=== PATIENT | female | born 1945 ===

== ENCOUNTER 2017-06-25 21:49 | Observation (INO) | payer MEDICARE, OTHER ==
[2017-06-25 21:53] VITALS: BMI 29.2
[2017-06-25 22:29] LABS: BASO # 0.03 K/mm3 (0.0-2.0); BASO % 0.4 % (0.0-3.0); EOS # 0.2 (0.0-0.7); EOS % 2.8 % (1.5-5.0); GRAN # 4.95 (1.4-6.5); GRAN % 64.8 % (50.0-68.0); HEMATOCRIT 32.8 % (36.0-48.0); LYMPH % 25.6 % (22.0-35.0); MEAN CELL VOLUME 87.2 fl (80.0-105.0); MEAN CORPUSCULAR HEMOGLOBIN 28.7 pg (25.0-35.0); MEAN CORPUSCULAR HGB CONC 32.9 g/dl (31.0-37.0); MEAN PLATELET VOLUME 9.7 fl (7.0-11.0); MONO # 0.5 (0.1-0.6); MONO % 6.4 % (1.0-6.0); RED CELL DISTRIBUTION WIDTH 15.9 % (11.5-14.5); WHITE BLOOD COUNT 7.6 10^3/ul (4.5-11.0)
--- NOTE | 2017-06-25 22:32 | ED PDOC ---
Arrival/HPI - General Chief Complaint: Chest Pain Time Seen by Provider: 06/25/17 21:52 - History of Present Illness Narrative History of Present Illness (Text): 06/25/17 22:30 72 F with PMHx significant for stroke with 2 hour duration of constant, sharp, non-radiating, left sided cp of 7/10 severity and associated symptoms of n/v. Patient's son at bedside providing translation and history. He states that pt was complaining of a headache and chest pain a couple of hours ago, so he took the patient's bp and it was 200/110. He then called EMS, who brought the patient here. Patient was given ASA 324 in the ambulance. Pt denies sob, loss of vision, dizziness, palpitations, and diaphoresis. Patient further denies f/ch. No further complaints at this time. (Ray Bach) Past Medical History - Provider Review Nursing Documentation Reviewed: Yes - Travel History Have you recently traveled outside [place] w/in the past 3 mons?: No - Infectious Disease Hx of Infectious Diseases: None - Tetanus Immunization Tetanus Immunization: Unknown - Cardiac Hx Cardiac Disorders: Yes Hx Hypertension: Yes - Pulmonary Hx Respiratory Disorders: Yes Hx Bronchitis: Yes Hx Chronic Obstructive Pulmonary Disease (COPD): Yes - Neurological HX Cerebrovascular Accident: Yes (2004 with right leg weakness) - HEENT Hx Difficulty Chewing: No - Renal Hx Renal Disorder: No - Endocrine/Metabolic Hx Endocrine Disorders: Yes Hx Diabetes Mellitus Type 2: Yes - Hematological/Oncological Hx Blood Disorders: Yes - Integumentary Hx Dermatological Disorder: No - Musculoskeletal/Rheumatological Hx Musculoskeletal Disorders: No Hx Falls: No - Gastrointestinal Hx Gastrointestinal Disorders: Yes (Gastritis) - Genitourinary/Gynecological Hx Genitourinary Disorders: Yes - Psychiatric Hx Anxiety: Yes Hx Depression: Yes Hx Substance Use: No - Past Surgical History Past Surgical History: No Previous - Surgical History Hx Cardiac Catheterization: No Hx Coronary Stent: No - Anesthesia Hx Anesthesia: No - Suicidal Assessment Feels Threatened In Home Enviroment: No Family/Social History - Physician Review Nursing Documentation Reviewed: Yes Family/Social History: Unknown Family HX Smoking Status: Never Smoked Hx Alcohol Use: No Hx Substance Use: No Hx Substance Use Treatment: No Allergies/Home Meds Allergies/Adverse Reactions: Allergies No Known Allergies Allergy (Verified 07/31/16 15:45) Home Medications: Home Meds Medication Instructions Recorded Confirmed Metoprolol Tartrate 25 mg PO BID 09/30/12 06/25/17 Atorvastatin [Lipitor] 20 mg PO DAILY 11/05/14 06/25/17 Losartan Potassium 100 mg PO DAILY 11/05/14 06/25/17 amLODIPine [Norvasc] 10 mg PO DAILY 11/05/14 06/25/17 cloNIDine 0.1 mg/24 hr [catapres 0.1 mg TD SAT 06/18/15 06/25/17 TTS1 0.1 mg/24 hr] Dicyclomine [Bentyl] 10 mg PO TID 01/17/16 06/25/17 Meloxicam [Mobic] 7.5 mg PO PRN 01/17/16 06/25/17 Omeprazole [Prilosec] 20 mg PO DAILY 01/17/16 06/25/17 Tramadol HCl/Acetaminophen 1 tab PO PRN 01/17/16 06/25/17 [Tramadol-Acetaminophn 37.5-325] Zolpidem [Ambien] 5 mg PO HS 01/17/16 06/25/17 hydroCHLOROthiazide [Microzide] 12.5 mg PO DAILY 01/17/16 06/25/17 Glipizide [Glipizide ER] 5 mg PO DAILY 06/25/17 06/25/17 Review of Systems - Physician Review All systems were reviewed & negative as marked: Yes - Review of Systems Constitutional: Normal. absent: Fatigue, Weight Change, Fevers Eyes: Normal. absent: Vision Changes, Photophobia, Eye Pain ENT: Normal. absent: Hearing Changes, Tinnitus, TMJ Pain Respiratory: Normal. absent: SOB, Cough, Wheezing Cardiovascular: Chest Pain. absent: Palpitations, Edema, Calf Pain, ORDONEZ, Orthopnea, Syncope Gastrointestinal: Nausea, Vomiting (pt had bout of vomiting about 2 hours ago when pain started). absent: Abdominal Pain Genitourinary Female: Normal. absent: Dysuria, Frequency, Hematuria Musculoskeletal: Normal. absent: Arthralgias, Back Pain, Neck Pain Skin: Normal. absent: Rash, Pruritis, Skin Lesions Neurological: Normal. absent: Headache, Dizziness, Focal Weakness, Gait Changes Endocrine: Normal. absent: Diaphoresis, Polyuria, Polydipsia Hemo/Lymphatic: Normal. absent: Adenopathy, Easy Bleeding, Easy Bruising Psychiatric: Normal. absent: Anxiety, Depression, Suicidal Ideation Physical Exam Vital Signs Reviewed: Yes Temperature: Afebrile Blood Pressure: Hypertensive Pulse: Regular Respiratory Rate: Normal Appearance: Positive for: Well-Appearing, Non-Toxic, Comfortable Pain Distress: None Mental Status: Positive for: Alert and Oriented X 3 - Systems Exam Head: Present: Atraumatic, Normocephalic. No: Tenderness, Contusion Pupils: Present: PERRL. No: Sluggish, Non-Reactive, Pinpoint Extroacular Muscles: Present: EOMI. No: Gaze Palsy, Entrapment Conjunctiva: Present: Normal. No: Injected, Icteric Ears: Present: Normal, NORMAL TM, Normal Canal. No: Erythema, TM Bulging Mouth: Present: Moist Mucous Membranes. No: Dry, Drooling, Trismus Pharnyx: Present: Normal. No: ERYTHEMA, EXUDATE, TONSILS ENLARGED Nose (External): Present: Atraumatic. No: Abrasion, Contusion, Laceration Nose (Internal): Present: Normal Inspection, No Active Bleeding. No: Engorged, Edematous, Boggy Neck: Present: Normal Range of Motion. No: Meningeal Signs, MIDLINE TENDERNESS , Paraspinal Tenderness Respiratory/Chest: Present: Clear to Auscultation, Good Air Exchange. No: Respiratory Distress, Accessory Muscle Use Cardiovascular: Present: Regular Rate and Rhythm, Normal S1, S2, Peripheal Pulses Present. No: Murmurs, Irregular Rhythm, Tachycardic, Rub, Gallop Abdomen: Present: Normal Bowel Sounds. No: Tenderness, Distention, Peritoneal Signs, Rebound, Guarding Back: Present: Normal Inspection. No: CVA Tenderness, Midline Tenderness Upper Extremity: Present: Normal Inspection, Normal ROM, NORMAL PULSES. No: Cyanosis, Edema, Tenderness, Swelling Lower Extremity: Present: Normal Inspection, NORMAL PULSES, Normal ROM. No: Edema, CALF TENDERNESS, Cyanosis Neurological: Present: GCS=15, CN II-XII Intact, Speech Normal, Motor Func Grossly Intact, Normal Sensory Function, Normal Cerebellar Funct, Norm Deep Tendon Reflexes Skin: Present: Warm, Dry, Normal Color. No: Rashes, Diaphoretic Psychiatric: Present: Alert, Oriented x 3, Normal Insight, Normal Concentration , Normal Affect. No: Anxious, Agitated, Depressed Mood, Suicidal Ideation, Homicidal Ideation Vital Signs Temp Pulse Resp BP Pulse Ox 06/25/17 22:35 98.2 F 06/25/17 22:08 83 16 164/89 H 98 Medical Decision Making ED Course and Treatment: Patient Seen With Resident: In agreement with resident note which contains more details about the patient. Patient was seen and evaluated with resident. Came up with plan and treatment together. (Tawanda Nguyen) Assessed: 06/25/17 22:43 Impression: 72 F with PMHx pertinent for stroke presents with 2 hour duration of CP Plan: - Cardiac Iso's, EKG, CXR - CMP, CBC - UA, U Cx - Blood Cx - O2 Reassessed: 06/25/17 23:00 - CMP, CBC show no abnormalities - CXR negative - Tropes negative Reassessed 06/25/17 23:32 - Pt has extensive cardiac/stroke history - Spoke to Dr. Velarde, who is covering for Dr. Sterling, who agreed to admit the patient to his service on obs/tele (Ray Bach) - Lab Interpretations Lab Results: 06/25/17 22:24 06/25/17 22:24 Lab Results 06/25/17 22:24: Sodium 135, Potassium 4.1, Chloride 94 L, Carbon Dioxide 27, Anion Gap 18, BUN 16, Creatinine 0.9, Est GFR ( Amer) > 60, Est GFR (Non- Af Amer) > 60, Random Glucose 165 H, Calcium 9.7, Total Bilirubin 0.6, AST 43 H , ALT 29, Alkaline Phosphatase 151 H, Lactate Dehydrogenase 439, Total Creatine Kinase 55, Troponin I < 0.01, Total Protein 8.2, Albumin 4.9 H, Globulin 3.2, Albumin/Globulin Ratio 1.5 06/25/17 22:24: WBC 7.6 D, RBC 3.76, Hgb 10.8 L, Hct 32.8 L, MCV 87.2, MCH 28.7 , MCHC 32.9, RDW 15.9 H, Plt Count 208, MPV 9.7, Gran % 64.8, Lymph % (Auto) 25.6, [place] % (Auto) 6.4 H, Eos % (Auto) 2.8, Baso % (Auto) 0.4, Gran # 4.95, Lymph # 2.0, [place] # 0.5, Eos # 0.2, Baso # 0.03 06/25/17 21:50: Urine Color Yellow, Urine Appearance Clear, Urine pH 7.0, Ur Specific [place] 1.010, Urine Protein Negative, Urine Glucose (UA) Negative, Urine Ketones Negative, Urine Blood Trace-lysed H, Urine Nitrate Negative, Urine Bilirubin Negative, Urine Urobilinogen 0.2, Ur Leukocyte Esterase Negative , Urine RBC 0 - 2, Urine WBC Negative, Ur Epithelial Cells None, Urine Bacteria Trace - RAD Interpretation Radiology Orders: 06/25/17 22:20 CHEST PORTABLE [RAD] Stat Disposition/Present on Arrival - Present on Arrival Any Indicators Present on Arrival: No History of DVT/PE: No History of Uncontrolled Diabetes: No Urinary Catheter: No History of Decub. Ulcer: No History Surgical Site Infection Following: None - Disposition Have Diagnosis and Disposition been Completed?: Yes Disposition Time: 23:20 Patient Plan: Admission - Disposition Diagnosis: Chest pain Disposition: HOSPITALIZED Condition: GOOD Discharge Instructions (ExitCare): Chest Pain (ED) Referrals: Roc Potts, [Primary Care Provider] - Follow up with primary Forms: [employer] ([place])
[2017-06-25 22:40] LABS: ALB/GLOB RATIO 1.5 (1.1-1.8); ALKALINE PHOSPHATASE 151 U/L (38-126); ALT/SGPT 29 U/L (7-56); AST/SGOT 43 U/L (14-36); BILIRUBIN,TOTAL 0.6 mg/dL (0.2-1.3); BLOOD UREA NITROGEN 16 mg/dL (7-21); CALCIUM 9.7 mg/dL (8.4-10.5); CARBON DIOXIDE 27 mmol/L (21-33); CHLORIDE 94 mmol/L (98-107); GFR AFRICAN-AMERICAN > 60; GLUCOSE,RANDOM 165 mg/dL (70-110); POTASSIUM 4.1 mmol/L (3.6-5.0); SODIUM 135 mmol/L (132-148); TOTAL PROTEIN 8.2 g/dL (5.8-8.3)
[2017-06-25 22:51] LABS: URINE BILIRUBIN NEGATIVE (NEGATIVE); URINE BLOOD TRACE-LYSED (NEGATIVE); URINE GLUCOSE (UA) NEGATIVE (NEGATIVE); URINE KETONE NEGATIVE (NEGATIVE); URINE LEUKOCYTE ESTERASE NEGATIVE Leu/uL (NEGATIVE); URINE PROTEIN NEGATIVE mg/dL (<30 mg/dL); URINE UROBILINOGEN 0.2 E.U./dL (<1 E.U./dL)
[2017-06-25 22:52] LABS: TROPONIN I < 0.01 ng/mL
[2017-06-25 22:57] LABS: URINE APPEARANCE CLEAR (CLEAR); URINE COLOR YELLOW (YELLOW)
[2017-06-25 23:11] LABS: URINE BACTERIA TRACE (NEG); URINE RBC 0 - 2 /hpf (0-2); URINE WBC NEGATIVE /hpf (0-6)
[2017-06-26 06:45] VITALS: O2SAT 97
[2017-06-26 08:13] LABS: TROPONIN I < 0.01 ng/mL
[2017-06-26] MEDS ORDERED: GlipiZIDE 2.5 mg SR Tab PO SCH (10:00)
--- NOTE | 2017-06-26 11:31 | RAD ---
HISTORY: chest pain COMPARISON: Comparison chest 01/06/2017 FINDINGS: LUNGS: No active pulmonary disease. PLEURA: No significant pleural effusion identified, no pneumothorax apparent. CARDIOVASCULAR: Normal. OSSEOUS STRUCTURES: No significant abnormalities. VISUALIZED UPPER ABDOMEN: Normal. OTHER FINDINGS: None. IMPRESSION: No acute infiltrates.
--- NOTE | 2017-06-26 13:35 | CON ---
DATE: 06/26/2017 CONSULTATION INDICATION: Chest pain. HISTORY OF PRESENT ILLNESS: This is a 72-year-old woman known to me from prior [facility] admissions, admitted through the emergency room yesterday with a sharp chest discomfort, which was left-sided and lasted for several hours. It was associated with headache and elevated blood pressure. She was brought to the emergency room and subsequently has had resolution of symptoms. This morning, she is free of chest pain. The first troponin was negative. The EKG was benign. Her blood pressure is improved. There was no shortness of breath, orthopnea, PND, syncope, presyncope, lightheadedness, dizziness, vertigo, palpitation, edema, claudication, fever, chills, cough, sputum production, hemoptysis, abdominal pain, nausea, vomiting, diarrhea, constipation, or melena. The patient is Icelandic speaking. Information is from the chart and from her bedside nurse, who assisted with translation. I also spoke with Dr. Wolfe. PAST MEDICAL HISTORY: Notable for hypertension, diabetes, remote stroke, cerebrovascular disease, COPD, hyperlipidemia, anxiety, depression, gastritis, anemia, and an echocardiogram has demonstrated a moderate aortic insufficiency. Apparently, she sees a government affairs director in [place]. She reports a nuclear stress test a few years ago, which was apparently unremarkable. MEDICATIONS AT THE TIME OF ADMISSION: Included Ambien, aspirin, Bentyl, glipizide, Lipitor, losartan, metoprolol, hydrochlorothiazide, meloxicam, Motrin, Norvasc, Pepcid, omeprazole, tramadol, and clonidine patch. ALLERGIES: THERE ARE NO KNOWN MEDICATION ALLERGIES. SOCIAL HISTORY: She lives at home. She does not smoke cigarettes. She does not drink alcohol. FAMILY HISTORY: Noncontributory. REVIEW OF SYSTEMS: A 10-point review of systems is otherwise unremarkable except as noted above. PHYSICAL EXAMINATION: GENERAL: She is a well-developed woman, lying in bed on telemetry, in no acute distress. VITAL SIGNS: She is in sinus rhythm, 60 to 83 beats per minute. She is afebrile, blood pressure 134/69, respirations 16 to 18, and O2 sat 97% to 98% on room air. HEENT: Exam reveals no neck vein distention, thyromegaly, or carotid bruits. Mucous membranes moist. Conjunctivae pink. NECK: Supple. RESPIRATORY: Lung xiao clear throughout. CARDIOVASCULAR: Examination of the heart revealed normal first and second heart sounds. There was a soft systolic murmur and a soft diastolic murmur along the left sternal border. ABDOMEN: Soft. Bowel sounds are present. No mass, organomegaly, tenderness, rebound, guarding, palpable abdominal aortic aneurysm, or CVA tenderness. EXTREMITIES: Exam reveals no cyanosis, clubbing, or edema. NEUROLOGIC: Awake, alert, and oriented. PSYCHIATRIC: Normal as to mood and affect. SKIN: Warm and dry. No rash or cellulitis. LABORATORY AND IMAGING: EKG demonstrates regular sinus rhythm, no acute changes. Chest x-ray is a portable study. It is not interpreted yet. I see no evidence of congestive heart failure, effusion or infiltrate. Basically, it is a normal study by my interpretation. Hemoglobin 10.8, hematocrit 32.8, white blood cell count and platelet count normal. Electrolytes; BUN, creatinine unremarkable, BUN 16, creatinine 0.9, and blood sugar 165. Calcium normal. Bilirubin normal. Mild elevation of AST noted. ALT normal. Alkaline phosphatase mildly elevated. CK negative x2. Troponin negative x2. IMPRESSION: The patient is a 72-year-old woman admitted with chest pain, but no evidence of acute myocardial infarction by 2 sets of negative troponins. There has been no arrhythmia. She is on telemetry without chest pain this morning. PLAN: I have discussed the case with Dr. Wolfe. I would recommend a nuclear stress test. This can be done on an outpatient basis, perhaps by her own government affairs director in [place]. I would repeat her echocardiogram to assess the moderate aortic insufficiency seen on a prior echocardiogram. This can also be done on an outpatient basis. I would continue her current cardiac medications including aspirin, losartan, Lipitor, metoprolol, hydrochlorothiazide, and amlodipine. She can be out of bed and ambulate. Silvio Durant MD [facility] # [id number]
[2017-06-26] MEDS: Insulin Reg-LOW-Coverage SC SCH ×2 (14:07→16:56)
[2017-06-26 18:01] VITALS: BP 135/69
[2017-06-26 18:13] VITALS: RESP 17; TEMP 97.9
[2017-06-26 19:41] VITALS: PULSE 62
--- NOTE | 2017-06-26 22:52 | CARD ---
APPROVED REPORT EKG Measurement Heart [id number] [place] [id number] <Conclusion> Sinus bradycardia Otherwise normal ECG
--- NOTE | 2017-06-26 22:57 | CARD ---
APPROVED REPORT EKG Measurement Heart [id number] [place] [id number] <Conclusion> Normal sinus rhythm Septal infarct, age undetermined Abnormal ECG
--- NOTE | 2017-06-27 07:32 | HP ---
HISTORY OF PRESENT ILLNESS: This is a 72-year-old female who is coming into the hospital, who had started complaining of chest pain, she says 04/16. There was some nausea. The patient was also complaining of headache. She said, she was having left sided shoulder pain. This morning while I saw the patient, she did not have any of the symptoms. When she initially came into the emergency room, her blood pressure was significantly elevated with a systolic about 200. She says her Lathe Mechanic is in [place] and she had a stress test done 4 years ago. She is currently is comfortable. She has no complaints of any fever or chills. No nausea. No vomiting. No dysuria or frequency. No nocturia. No weakness in the arms or the legs. REVIEW OF SYSTEMS: All other review of symptoms are within normal limits except as mentioned. ALLERGIES: NO KNOWN DRUG ALLERGIES. HOME MEDICATIONS: Metoprolol, Lipitor, losartan, amlodipine, Catapres, Bentyl, Mobic, and Prilosec. PAST MEDICAL HISTORY: , hypertension, COPD, CVA in 2004 with right-sided leg weakness, diabetes type 2, chronic anemia, anxiety, and depression. FAMILY HISTORY: Noncontributory. SOCIAL HISTORY: chain smoker, use drugs. PHYSICAL EXAMINATION: VITAL SIGNS: She has a temperature of 98.5, pulse of 61, blood pressure of 132/67, respirations 18, height is 5 feet, weight is 147 pounds. BMI is 28.9. GENERAL: The patient lying in bed, uncomfortable, and in no acute distress. HEENT: Atraumatic and normocephalic. Anicteric sclerae. Moist mucosa. [place] conjunctivae. No oral lesions. NECK: No JVD, anterior and posterior adenopathy, thyromegaly, or bruits. CARDIOVASCULAR: S1 and S2 regular. No murmur, rubs, or gallop. LUNGS: Clear to auscultation bilaterally. No wheezes, rales, or rhonchi. ABDOMEN: Bowel sounds are positive. Soft, nontender and nondistended. No hepatosplenomegaly. No rebound and no guarding EXTREMITIES: No cyanosis, clubbing, or edema. NEUROLOGIC: No facial asymmetry. Tongue is midline. No uvula deviation. Power is 5/5 upper extremity and lower extremity. Sensation intact in upper extremity and lower extremity. PSYCHIATRIC: She is awake, alert and oriented x3. No anxiety or depression. She has normal affect. GENITOURINARY: No CVA tenderness. VASCULAR: 2+ pulses in the carotid pulses and pedal pulses. SKIN: No erythema or nodules. SPINE: Shows normal curvature. EXTREMITIES: No Cyanosis and clubbing, no edema. LABORATORY DATA: I have reviewed. The patient's troponin is 0.01, repeat is 0.01. Creatinine is 0.9. Urine shows blood that is trace, nitrites are negative, bilirubin is negative. Chest x-ray done that shows no infiltrates. EKG shows regular sinus rhythm. No ST-T changes. ASSESSMENT: 1. Chest pain, resolved. 2. Diabetes type 2. 3. Hypertension. 4. Dyslipidemia. PLAN: The patient is currently comfortable. She is admitted to the hospital with chest pain. Her troponins have been negative. The patient has no significant abnormality on EKG. She was seen by Dr. Page from cardiology and I did speak with him. The patient is going to be discharge home and followup with her primary Lathe Mechanic in [place]. She was advised translation to follow up for further management and possible stress test. The patient is on Lipitor for dyslipidemia. She is on metoprolol. She is on losartan for hypertension. She is going to continue with aspirin daily. She is on a heart-healthy diet. Juan Carlos Velarde MD
--- NOTE | 2017-06-27 09:43 | CARD ---
APPROVED REPORT EXAM: Two-dimensional and M-mode echocardiogram with Doppler and color Doppler. INDICATION Chest Pain AORTIC REGURGITATION 2D DIMENSIONS Left Atrium (2D)3.7 (1.6-4.0cm)IVSd1.2 (0.7-1.1cm) LVDd4.7 (3.9-5.9cm)PWd1.2 (0.7-1.1cm) LVDs3.2 (2.5-4.0cm)FS (%) 31.0 % LVEF (%)58.6 (>50%) M-Mode DIMENSIONS Aortic Root2.60 (2.2-3.7cm)Aortic Cusp Exc.1.40 (1.5-2.0cm) Aortic Valve AoV Peak Avfzyuvs817.0cm/Inga Peak GR.16mmHg Mitral Valve MV E Bvhmsgqb479.0cm/sMV A Ezukolca59.0cm/sE/A ratio1.4 TDI E/Lateral E'0.0E/Medial E'0.0 Tricuspid Valve TR Peak Ghbteioo021ra/sRAP [id number] Peak Gr.30mmHg [id number] LEFT VENTRICLE The left ventricle is normal size. There is mild concentric left ventricular hypertrophy. The left ventricular function is normal. The left ventricular ejection fraction is within the normal range. There is normal LV segmental wall motion. RIGHT VENTRICLE The right ventricle is normal size. The right ventricular systolic function is normal. ATRIA The left atrium size is normal. The right atrium size is normal. The interatrial septum is intact with no evidence for an atrial septal defect. AORTIC VALVE The aortic valve is mildly sclerotic. There is moderate aortic regurgitation. There is no aortic valvular stenosis. MITRAL VALVE The mitral valve is mildly thickened. Mitral regurgitation is mild. TRICUSPID VALVE The tricuspid valve is normal in structure. There is moderate tricuspid regurgitation. PULMONIC VALVE The pulmonary valve is normal in structure. GREAT VESSELS The aortic root is normal in size. The IVC is normal in size and collapses >50% with inspiration. PERICARDIAL EFFUSION There is no pleural effusion. There is no pericardial effusion. <Conclusion> Normal chamber size. Normal LV systolic function. Mild concentric LVH. Mild MR. Moderate TR. Moderate AI.
== END 2017-06-26 19:00 | disposition home or self-care (01) ==
LOC: ED 21:49 → ERH 23:32 → 2RNO 06-26 02:45
PROVIDERS: ADMIT Internal Medicine Nephrology; ATTEND Internal Medicine Nephrology
DX: R07.9 Chest pain, unspecified (principal); E11.9 Type 2 diabetes mellitus without complications; E78.5 Hyperlipidemia, unspecified; F17.200 Nicotine dependence, unspecified, uncomplicated; I10 Essential (primary) hypertension; I35.1 Nonrheumatic aortic (valve) insufficiency; I69.349 Monoplegia of lower limb following cerebral infarction affecting unspecified side; D64.9 Anemia, unspecified; J44.9 Chronic obstructive pulmonary disease, unspecified; Z79.899 Other long term (current) drug therapy; K29.70 Gastritis, unspecified, without bleeding; F32.89 Other specified depressive episodes; R40.2412 Glasgow coma scale score 13-15, at arrival to emergency department; R51 Headache; M25.512 Pain in left shoulder
CPT/HCPCS: 36415; 71010; 80053; 81001; 82550; 82948; 83615; 84484; 85025; 87040; 87086; 93005; 93306; 99285; G0378

== ENCOUNTER 2017-07-11 14:46 | Inpatient (IN) | payer MEDICARE, OTHER ==
[2017-07-11] MEDS ORDERED: Sodium Chloride 0.9% 500 ML IV STA (15:40)
[2017-07-11 16:09] LABS: BASO # 0.02 K/mm3 (0.0-2.0); BASO % 0.2 % (0.0-3.0); EOS # 0.1 (0.0-0.7); GRAN # 8.64 (1.4-6.5); GRAN % 76.2 % (50.0-68.0); HEMATOCRIT 27.4 % (36.0-48.0); LYMPH # 1.7 (1.2-3.4); LYMPH % 14.6 % (22.0-35.0); MEAN CORPUSCULAR HEMOGLOBIN 28.9 pg (25.0-35.0); MEAN CORPUSCULAR HGB CONC 33.2 g/dl (31.0-37.0); MEAN PLATELET VOLUME 9.1 fl (7.0-11.0); MONO # 0.9 (0.1-0.6); RED CELL DISTRIBUTION WIDTH 16.2 % (11.5-14.5); WHITE BLOOD COUNT 11.3 10^3/ul (4.5-11.0)
[2017-07-11 16:14] LABS: INR 1.01 (0.93-1.08); PARTIAL THROMBOPLASTIN TIME 32.4 Seconds (23.7-30.8)
[2017-07-11 16:14] LABS: ALB/GLOB RATIO 1.4 (1.1-1.8); BILIRUBIN,TOTAL 0.7 mg/dL (0.2-1.3); CALCIUM 8.5 mg/dL (8.4-10.5); POTASSIUM 4.1 mmol/L (3.6-5.0); TOTAL PROTEIN 7.3 g/dL (5.8-8.3)
--- NOTE | 2017-07-11 16:24 | ED PDOC ---
Arrival/HPI - General Chief Complaint: Female Genitourinary Time Seen by Provider: 07/11/17 15:04 Historian: Patient, Family - History of Present Illness Narrative History of Present Illness (Text): 07/11/17 16:22 72 yo F w/ pmh of DM, HTN, anemia and high cholesterol, reports 2 days of tactile fever, chills, nausea, cough productive of phlegm, with intermittent LUQ pain. Patient went to see her pmd, a UA was done, which showed +blood, and was advised to go to the ER for further evaluation. Otherwise: (-) sore throat, (-) URI symptoms, (-) SOB, (-) chest pain, (-) V/D, (-) flank pain, (-) urinary symptoms, (-) recent travel, (-) sick contacts. PMD Condo Past Medical History - Provider Review Nursing Documentation Reviewed: Yes - Infectious Disease Hx of Infectious Diseases: None - Tetanus Immunization Tetanus Immunization: Unknown - Cardiac Hx Cardiac Disorders: Yes Hx Hypertension: Yes - Pulmonary Hx Respiratory Disorders: Yes Hx Chronic Obstructive Pulmonary Disease (COPD): Yes - Neurological Hx Neurological Disorder: Yes HX Cerebrovascular Accident: Yes - HEENT Hx HEENT Disorder: Yes Hx Cataracts: Yes - Renal Hx Renal Disorder: No - Endocrine/Metabolic Hx Endocrine Disorders: Yes Hx Diabetes Mellitus Type 2: Yes - Hematological/Oncological Hx Blood Disorders: No - Integumentary Hx Dermatological Disorder: No - Musculoskeletal/Rheumatological Hx Musculoskeletal Disorders: No Hx Falls: No - Gastrointestinal Hx Gastrointestinal Disorders: Yes Hx Gastroesophageal Reflux: Yes - Genitourinary/Gynecological Hx Genitourinary Disorders: Yes Hx Urinary Tract Infection: Yes - Psychiatric Hx Psychophysiologic Disorder: No Hx Substance Use: No - Past Surgical History Past Surgical History: No Previous - Surgical History Hx Cardiac Catheterization: No Hx Coronary Stent: No - Anesthesia Hx Anesthesia: No - Suicidal Assessment Feels Threatened In Home Enviroment: No Family/Social History - Physician Review Nursing Documentation Reviewed: Yes Family/Social History: No Known Family HX Smoking Status: Never Smoked Hx Alcohol Use: No Hx Substance Use: No Hx Substance Use Treatment: No Allergies/Home Meds Allergies/Adverse Reactions: Allergies No Known Allergies Allergy (Verified 07/11/17 19:53) Home Medications: Home Meds Medication Instructions Recorded Confirmed Atorvastatin [Lipitor] 20 mg PO DAILY 11/05/14 07/11/17 amLODIPine [Norvasc] 10 mg PO DAILY 11/05/14 07/11/17 Dicyclomine [Bentyl] 10 mg PO TID 01/17/16 07/11/17 Omeprazole [Prilosec] 20 mg PO DAILY 01/17/16 07/11/17 hydroCHLOROthiazide [Microzide] 12.5 mg PO DAILY 01/17/16 07/11/17 Glipizide [Glipizide ER] 5 mg PO DAILY 06/25/17 07/11/17 Amitriptyline HCl [Amitriptyline 25 mg PO DAILY 07/11/17 07/11/17 HCl] Dicyclomine [Bentyl] 10 mg PO DAILY 07/11/17 07/11/17 Donepezil [Aricept] 10 mg PO DAILY 07/11/17 07/11/17 Fluticasone/Salmeterol 100/50 1 puff IH DAILY 07/11/17 07/11/17 [Advair Diskus 100/50] Losartan Potassium [Cozaar] 100 mg PO DAILY 07/11/17 07/11/17 Metoprolol Tartrate [Lopressor] 25 mg PO DAILY 07/11/17 07/11/17 cloNIDine [Catapres] 0.1 mg PO DAILY 07/11/17 07/11/17 Review of Systems - Review of Systems Constitutional: Normal, Fevers, Other (chills). absent: Fatigue, Weight Change ENT: Normal. absent: Sore Throat, Rhinorrhea, Sinus Congestion Respiratory: Normal, Cough. absent: SOB, Wheezing Cardiovascular: Normal. absent: Chest Pain, Palpitations, Edema Gastrointestinal: Normal, Abdominal Pain, Nausea. absent: Diarrhea, Vomiting Genitourinary Female: Normal, Hematuria. absent: Dysuria, Frequency Musculoskeletal: Normal. absent: Arthralgias, Back Pain, Neck Pain Skin: Normal. absent: Rash, Pruritis, Skin Lesions Neurological: Normal. absent: Headache, Dizziness, Focal Weakness Physical Exam - Physical Exam Narrative Physical Exam (Text): 07/11/17 16:25 GENERAL APPEARANCE: Patient is awake, alert, oriented x 3, in no acute distress. SKIN: Warm, dry; (-) cyanosis, (-) rash. (-) Decubitus Ulcer EYES: (-) conjunctival pallor, (-) scleral icterus, (-) conjunctival hemorrhage. ENMT: Mucous membranes dry. Airway patent: (-) stridor. Pharynx: (-) erythema, (-) exudate. NECK: (-) tenderness, (-) stiffness, (-) meningismus, (-) lymphadenopathy. CHEST AND RESPIRATORY: (-) accessory muscle use. Lungs: (-) rales, (-) rhonchi, (-) wheezes, (-) rub; breath sounds equal bilaterally. HEART AND CARDIOVASCULAR: (-) irregularity; (-) murmur, (-) gallop, (-) rub. ABDOMEN AND GI: Soft; (-) tenderness, (-) guarding; (-) organomegaly; (-) mass ; (-) CVA tenderness. RECTAL : (-) tenderness, (-) mass, (-) stool impaction. Stool brown in color, guiac (+). 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 EXTREMITIES: (-) deformity; (-) cellulitis, (-) lymphangitis; (-) subungual hemorrhage; (-) edema. NEURO AND PSYCH: Mental status as above; (-) focal findings. Vital Signs Temp Pulse Resp BP Pulse Ox 07/11/17 18:45 98.7 F 87 17 122/78 99 07/11/17 17:38 99.3 F 82 17 129/49 L 100 07/11/17 15:48 99 F 07/11/17 14:57 98.8 F 81 17 104/69 99 Medical Decision Making ED Course and Treatment: 07/11/17 16:25 72 yo F w/ pmh of DM, HTN and high cholesterol, reports 2 days of tactile fever , chills, nausea, cough productive of phlegm, with intermittent LUQ pain. DDx : UTI, PNA, cholecystitis Plan: -- Labs -- IV fluids -- Urinalysis -- Rectal temp -- CXR -- Reassess and disposition -- US ABD Rectal T 99. CXR : NAD, as read by YG BORGES abd : no acute findings. Labs reviewed, patient noted to have a mild elevated WBC with a L shift, Hgb is 9.1, prior labs reveal that the patient is normally around 11-10. On further questioning, the patient states that she had a normal endoscopy and colonoscopy 2-3 years ago, does not recall the GI doctor, who did the procedure. Patient still afebrile at this time, is not tachycardic, resting in bed comfortably in no acute distress, is requesting for tylenol for her b/l knee pain due to arthritis. Breathing easy and unlabored, lungs CTA, abdomen remains soft and non -tender. Given tylenol po. Based on history, exam and diagnostic results plan will be for inpatient admission for UTI, anemia and GI bleed. Patient and family made aware of diagnosis and plan for admission. Patient states she fully agrees with and understands further plan of care. I have given the patient opportunity to ask any additional questions. Case d/w Dr. Velarde, agrees with plan to admit the patient, bridge orders placed, consult to GI ordered. - Lab Interpretations Lab Results: 07/11/17 13:50 07/11/17 15:50 Lab Results 07/11/17 16:55: Urine Color Yellow, Urine Appearance Sl cloudy, Urine pH 7.0, Ur Specific [place] 1.010, Urine Protein Negative, Urine Glucose (UA) Negative, Urine Ketones Negative, Urine Blood Small H, Urine Nitrate Negative, Urine Bilirubin Negative, Urine Urobilinogen 0.2, Ur Leukocyte Esterase Small H, Urine RBC 0 - 2, Urine WBC 5 - 10 07/11/17 15:50: Sodium 130 L, Potassium 4.1, Chloride 92 L, Carbon Dioxide 27, Anion Gap 15, BUN 14, Creatinine 1.1, Est GFR ( Amer) 59, Est GFR (Non- Af Amer) 49, Random Glucose 117 H, Calcium 8.5, Total Bilirubin 0.7, AST 45 H, ALT 41, Alkaline Phosphatase 125, Total Protein 7.3, Albumin 4.3, Globulin 3.0, Albumin/Globulin Ratio 1.4, Lipase 121 07/11/17 13:50: PT 10.9, INR 1.01, APTT 32.4 H 07/11/17 13:50: WBC 11.3 H D, RBC 3.15 L, Hgb 9.1 L, Hct 27.4 L, MCV 87.0, MCH 28.9, MCHC 33.2, RDW 16.2 H, Plt Count 198, MPV 9.1, Gran % 76.2 H, Lymph % ( Auto) 14.6 L, [place] % (Auto) 8.0 H, Eos % (Auto) 1.0 L, Baso % (Auto) 0.2, Gran # 8.64 H, Lymph # 1.7, [place] # 0.9 H, Eos # 0.1, Baso # 0.02 I have reviewed the lab results: Yes - RAD Interpretation Narrative RAD Interpretations (Text): 07/11/17 18:46 US ABD : FINDINGS: LIVER: Measures 17.6 cm. Normal echogenicity of the liver parenchyma. No mass. No intrahepatic bile duct dilatation. GALLBLADDER: There are no gallstones, wall thickening or pericholecystic fluid. The sonographic Gomez's sign is negative. COMMON BILE DUCT: Measures 5.1 mm. No stones. No dilatation. PANCREAS: Unremarkable as visualized. No mass. No ductal dilatation. RIGHT KIDNEY: Measures 10.4cm. Normal echogenicity. No calculus, mass, or hydronephrosis. LEFT KIDNEY: Measures 10.2cm. Normal echogenicity. No calculus, mass, or hydronephrosis. SPLEEN: Normal in size and contour. No mass. AORTA: No aneurysmal dilatation. IVC: Unremarkable. OTHER FINDINGS: None. IMPRESSION: Normal examination. Radiology Orders: 07/11/17 15:40 ABDOMEN COMPLETE [US] Stat 07/11/17 15:43 CHEST TWO VIEWS (PA/LAT) [RAD] Stat - Medication Orders Current Medication Orders: Amitriptyline HCl (Elavil) 25 mg PO DAILY [facility] Amlodipine Besylate (Norvasc) 10 mg PO DAILY [facility] Arformoterol Tartrate (Brovana) 15 mcg IH DAILY@0800 [facility] Aspirin (Aspirin Chewable) 81 mg PO DAILY [facility] Atorvastatin Calcium (Lipitor) 20 mg PO DAILY [facility] Budesonide (Pulmicort Respules) 0.25 mg IH DAILY@0800 [facility] Donepezil HCl (Aricept) 10 mg PO DAILY [facility] Glipizide (Glucotrol) 5 mg PO ACB [facility] Hydrochlorothiazide (Microzide) 12.5 mg PO DAILY [facility] Insulin Human Regular (Humulin R Med) 0 units SC ACHS [facility] PRN Reason: Protocol Last Admin: 07/12/17 00:41 Dose: Not Given Non-Admin Reason: Blood Sugar Parameter MAR Blood Glucose Document 07/12/17 00:41 NW (Rec: 07/12/17 00:48 NW [id number]) Blood Glucose Finger Stick Blood Glucose (70-120) 152 Losartan Potassium (Cozaar) 100 mg PO DAILY [facility] Metoprolol Tartrate (Lopressor) 25 mg PO DAILY [facility] Discontinued Medications Sodium Chloride (Sodium Chloride 0.9%) 500 mls @ 500 mls/hr IV .Q1H STA Stop: 07/11/17 16:39 Last Admin: 07/11/17 16:00 Dose: 500 mls/hr eMAR Start Stop Document 07/11/17 16:00 OCS (Rec: 07/11/17 16:00 [place] [email or web address] Intravenous Solution Start Date 07/11/17 Start Time 16:00 Ceftriaxone Sodium (Rocephin 1 Gram Ivpb) 1 gm in 100 mls @ 200 mls/hr IVPB STAT STA PRN Reason: Protocol Stop: 07/11/17 18:14 Last Admin: 07/11/17 18:09 Dose: 200 mls/hr eMAR Start Stop Document 07/11/17 18:09 OCS (Rec: 07/11/17 18:09 O[place] [email or web address] Intravenous Solution Start Date 07/11/17 Start Time 18:09 Ondansetron HCl (Zofran Inj) 4 mg IVP STAT STA Stop: 07/11/17 15:41 Last Admin: 07/11/17 16:00 Dose: 4 mg IVP Administration Document 07/11/17 16:00 OCS (Rec: 07/11/17 16:00 [facility] [email or web address] Charges for Administration # of IVP Administrations 1 Pantoprazole Sodium (Protonix Inj) 40 mg IVP STAT STA Stop: 07/11/17 15:41 Last Admin: 07/11/17 16:00 Dose: 40 mg IVP Administration Document 07/11/17 16:00 OCS (Rec: 07/11/17 16:01 OCS [email or web address] Charges for Administration # of IVP Administrations 1 Pneumococcal Polyvalent Vaccine (Pneumovax 23 Vaccine) 0.5 ml IM .ONCE ONE Stop: 07/11/17 21:48 - 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 Disposition/Present on Arrival - Present on Arrival Any Indicators Present on Arrival: No History of DVT/PE: No History of Uncontrolled Diabetes: No Urinary Catheter: No History of Decub. Ulcer: No History Surgical Site Infection Following: None - Disposition Have Diagnosis and Disposition been Completed?: Yes Diagnosis: UTI (urinary tract infection), Anemia, GI bleed Disposition: HOSPITALIZED Disposition Time: 18:30 Patient Plan: Admission Patient Problems: Current Active Problems Problem Status Onset Anemia Acute GI bleed Acute UTI (urinary tract infection) Acute Condition: STABLE
--- NOTE | 2017-07-11 17:08 | US ---
HISTORY: LUQ pain, hematuria COMPARISON: None. TECHNIQUE: Grayscale imaging was performed. FINDINGS: LIVER: Measures 17.6 cm. Normal echogenicity of the liver parenchyma. No mass. No intrahepatic bile duct dilatation. GALLBLADDER: There are no gallstones, wall thickening or pericholecystic fluid. The sonographic Gomez's sign is negative. COMMON BILE DUCT: Measures 5.1 mm. No stones. No dilatation. PANCREAS: Unremarkable as visualized. No mass. No ductal dilatation. RIGHT KIDNEY: Measures 10.4cm. Normal echogenicity. No calculus, mass, or hydronephrosis. LEFT KIDNEY: Measures 10.2cm. Normal echogenicity. No calculus, mass, or hydronephrosis. SPLEEN: Normal in size and contour. No mass. AORTA: No aneurysmal dilatation. IVC: Unremarkable. OTHER FINDINGS: None. IMPRESSION: Normal examination.
--- NOTE | 2017-07-11 17:11 | RAD ---
HISTORY: cough COMPARISON: 06/25/2017. TECHNIQUE: Chest PA and lateral FINDINGS: LUNGS: The lungs are well inflated and clear. PLEURA: No significant pleural effusion identified. No pneumothorax apparent. CARDIOVASCULAR: Normal. OSSEOUS STRUCTURES: Within normal limits for the patient's age. There is bilateral calcific tendinitis. VISUALIZED UPPER ABDOMEN: Normal. OTHER FINDINGS: None. IMPRESSION: No active pulmonary disease.
[2017-07-11 17:15] LABS: URINE BILIRUBIN NEGATIVE (NEGATIVE); URINE BLOOD SMALL (NEGATIVE); URINE GLUCOSE (UA) NEGATIVE (NEGATIVE); URINE KETONE NEGATIVE (NEGATIVE); URINE LEUKOCYTE ESTERASE SMALL Leu/uL (NEGATIVE); URINE PROTEIN NEGATIVE mg/dL (<30 mg/dL); URINE UROBILINOGEN 0.2 E.U./dL (<1 E.U./dL)
[2017-07-11 17:19] LABS: URINE APPEARANCE SL CLOUDY (CLEAR); URINE COLOR YELLOW (YELLOW)
[2017-07-11 17:31] LABS: URINE RBC 0 - 2 /hpf (0-2)
[2017-07-11] MEDS ORDERED: cefTRIAXone 1 gm 1 GM/100 ML BAG IVPB STA (17:45)
[2017-07-11 21:47] VITALS: BMI 25.7
[2017-07-11] MEDS ORDERED: Pneumococcal 23-Valent Vaccine IM ONE (21:47)
[2017-07-12] MEDS: Insulin Reg-MEDIUM-Coverage SC SCH ×5 (00:41→21:10)
[2017-07-12 06:45] LABS: HEMATOCRIT 26.9 % (36.0-48.0); MEAN CELL VOLUME 86.8 fl (80.0-105.0); MEAN CORPUSCULAR HEMOGLOBIN 28.4 pg (25.0-35.0); MEAN CORPUSCULAR HGB CONC 32.7 g/dl (31.0-37.0); MEAN PLATELET VOLUME 9.7 fl (7.0-11.0); RED CELL DISTRIBUTION WIDTH 16.3 % (11.5-14.5); WHITE BLOOD COUNT 9.4 10^3/ul (4.5-11.0)
[2017-07-12 06:51] LABS: ALB/GLOB RATIO 1.3 (1.1-1.8); ALKALINE PHOSPHATASE 131 U/L (38-126); ALT/SGPT 30 U/L (7-56); AST/SGOT 37 U/L (14-36); BILIRUBIN,TOTAL 0.5 mg/dL (0.2-1.3); BLOOD UREA NITROGEN 12 mg/dL (7-21); CALCIUM 8.4 mg/dL (8.4-10.5); CARBON DIOXIDE 30 mmol/L (21-33); CHLORIDE 100 mmol/L (98-107); GFR AFRICAN-AMERICAN > 60; GLUCOSE,RANDOM 133 mg/dL (70-110); SODIUM 138 mmol/L (132-148); TOTAL PROTEIN 6.6 g/dL (5.8-8.3)
[2017-07-12 06:57] LABS: IRON 10 ug/dL (45-180)
[2017-07-12] MEDS: Budesonide 0.25 mg/2 ml Inhal Susp UD IH SCH (07:53)
[2017-07-12] MEDS ORDERED: Arformoterol 15 mcg/2 ml Inh Sol IH SCH (08:00)
[2017-07-12] MEDS ORDERED: Cefepime 1gm in NS 100ml 1 GM/100 ML BAG IVPB SCH (10:00)
[2017-07-12] MEDS ORDERED: cefTRIAXone 1 gm 1 GM/100 ML BAG IVPB SCH (10:00)
--- NOTE | 2017-07-12 13:21 | CP.PCM.HP ---
<Penny Hansen - Last Filed: 07/12/17 13:18> History of Present Illness - History of Present Illness History of Present Illness: PGY-2 H&P for Dr. Velarde 72 yo female with pmh of DM, HTN, copd, and high cholesterol present with 2 day history of subjective fever, chills, productive cough. Patient states that all her symptoms began 2-3 days ago. She states that she also had sore throat and nasal congestion on the onset of her symptoms but has since improved. Patient reports productive cough with yellow sputum for 3 days. In ED patient also reported LUQ abd pain which has since improved. She denies chest pain, SOB, n/v/ d/c, urinary symptoms. She also denies any recent travel, or sick contacts. Patient was given 1 dose of Rocephin in ED. This morning patient had fever of 101.3 PMH: DM, HTN, copd, and high cholesterol PSH: denies Social hx: denies smoking, Etoh use, illicit drug use Fam hx: DM allergy: NKDA home meds: hydrochlorothiazide, clonidine, omeprazole, lopressor, cozaar, glipizide, advair, aricept, bentyl, lipitor, asa, amitriptyline Present on Admission - Present on Admission Any Indicators Present on Admission: No Review of Systems - Constitutional Constitutional: Chills, Fever. absent: Headache, Weakness - EENT Eyes: absent: Change in Vision Nose/Mouth/Throat: Nasal Congestion, Sore Throat - Cardiovascular Cardiovascular: absent: Chest Pain, Dyspnea, Leg Edema, Palpitations - Respiratory Respiratory: Cough. absent: Dyspnea, Hemoptysis - Gastrointestinal Gastrointestinal: absent: Abdominal Pain, Constipation, Diarrhea, Nausea, Vomiting - Genitourinary Genitourinary: absent: Difficulty Urinating, Dysuria, Hematuria - Musculoskeletal Musculoskeletal: Arthralgias. absent: Back Pain, Neck Pain, Numbness, Stiffness - Integumentary Integumentary: absent: Pruritus, Rash, Skin Ulcer, Sores, Swelling - Neurological Neurological: absent: Dizziness, Numbness, Headaches, Syncope, Tingling, Weakness - Hematologic/Lymphatic Hematologic: absent: Easy Bleeding, Easy Bruising Past Patient History - Infectious Disease Hx of Infectious Diseases: None - Tetanus Immunizations Tetanus Immunization: Unknown - Past Social History Smoking Status: Never Smoked - CARDIAC Hx Cardiac Disorders: Yes Hx Hypertension: Yes - PULMONARY Hx Respiratory Disorders: Yes Hx Chronic Obstructive Pulmonary Disease (COPD): Yes - NEUROLOGICAL Hx Neurological Disorder: Yes HX Cerebrovascular Accident: Yes - HEENT Hx HEENT Problems: Yes Hx Cataracts: Yes - RENAL Hx Chronic Kidney Disease: No - ENDOCRINE/METABOLIC Hx Endocrine Disorders: Yes Hx Diabetes Mellitus Type 2: Yes - HEMATOLOGICAL/ONCOLOGICAL Hx Blood Disorders: No - INTEGUMENTARY Hx Dermatological Problems: No - MUSCULOSKELETAL/RHEUMATOLOGICAL Hx Musculoskeletal Disorders: No Hx Falls: No - GASTROINTESTINAL Hx Gastrointestinal Disorders: Yes Hx Gastroesophageal Reflux: Yes - GENITOURINARY/GYNECOLOGICAL Hx Genitourinary Disorders: Yes Hx Urinary Tract Infection: Yes - PSYCHIATRIC Hx Psychophysiologic Disorder: No Hx Substance Use: No - SURGICAL HISTORY Hx Cardiac Catheterization: No Hx Coronary Stent: No - ANESTHESIA Hx Anesthesia: No Meds Allergies/Adverse Reactions: Allergies Allergy/AdvReac Type Severity Reaction Status Date / Time No Known Allergies Allergy Verified 07/11/17 19:53 Physical Exam - Constitutional Appears: Well, No Acute Distress - Head Exam Head Exam: ATRAUMATIC, NORMAL INSPECTION, NORMOCEPHALIC - Eye Exam Eye Exam: EOMI, Normal appearance - ENT Exam ENT Exam: Mucous Membranes Moist - Respiratory Exam Respiratory Exam: Clear to Auscultation Bilateral, NORMAL BREATHING PATTERN. absent: Decreased Breath Sounds, Rales, Rhonchi, Wheezes, Respiratory Distress - Cardiovascular Exam Cardiovascular Exam: REGULAR RHYTHM, +S1, +S2. absent: Tachycardia, Diastolic murmur, Systolic Murmur - GI/Abdominal Exam GI & Abdominal Exam: Normal Bowel Sounds, Soft. absent: Distended, Firm, Guarding, Tenderness - Extremities Exam Extremities exam: Positive for: normal inspection, tenderness (mildly bilateral ) - Neurological Exam Neurological exam: Alert, Oriented x3 - Skin Skin Exam: Dry, Intact, Normal Color, Warm Results - Vital Signs Recent Vital Signs: Last Vital Signs Temp 99.6 F 07/12/17 08:00 Pulse 71 07/12/17 10:09 Resp 20 07/12/17 06:00 BP 114/56 L 07/12/17 10:09 Pulse Ox 97 07/12/17 06:00 - Labs Result Diagrams: 07/12/17 06:00 07/12/17 06:00 Labs: Laboratory Results - last 24 hr 07/12/17 07/12/17 07/12/17 00:48 06:00 06:00 WBC 9.4 RBC 3.10 L Hgb 8.8 L Hct 26.9 L MCV 86.8 MCH 28.4 MCHC 32.7 RDW 16.3 H Plt Count 206 MPV 9.7 Sodium 138 Potassium 4.0 Chloride 100 Carbon Dioxide 30 Anion Gap 12 BUN 12 Creatinine 1.0 Est GFR ( Amer) > 60 Est GFR (Non-Af Amer) 54 POC Glucose (mg/dL) 152 H Random Glucose 133 H Calcium 8.4 Iron TIBC % Saturation Ferritin 67.1 Total Bilirubin 0.5 AST 37 H ALT 30 Alkaline Phosphatase 131 H Total Protein 6.6 Albumin 3.7 Globulin 2.9 Albumin/Globulin Ratio 1.3 07/12/17 07/12/17 07/12/17 06:00 08:10 11:24 WBC RBC Hgb Hct MCV MCH MCHC RDW Plt Count MPV Sodium Potassium Chloride Carbon Dioxide Anion Gap BUN Creatinine Est GFR ( Amer) Est GFR (Non-Af Amer) POC Glucose (mg/dL) 133 H 147 H Random Glucose Calcium Iron 10 L TIBC 238 L % Saturation 4 L Ferritin Total Bilirubin AST ALT Alkaline Phosphatase Total Protein Albumin Globulin Albumin/Globulin Ratio Assessment & Plan - Assessment and Plan (Free Text) Assessment: 72 yo female with pmh of DM, HTN, copd, and high cholesterol present with 2 day history of subjective fever, chills, productive cough. Plan: 1. sepsis - sirs 3/4 most likely due to UTI - UA small leukocyte esterase - urine cultures pending - CXR negative fpr active disease - abd US was normal, negative for gall stones, hydronephrosis - morning patient had fever of 101.3, abd changed to cefepime - ID consulted 2. anemia - Hgb below baseline - iron studies show low iron - start feosol - guiac positive stool - GI consult for possible GI bleed 3. hyponatremia - resolved - most likely secondary to hypovolemia - will monitor 4. DM II - cont glipizide - iss - fingerstick ACHS 5. HTN - patient BP is boarder line low - will hold home meds - cont to monitor 6. copd - cont home pulmicort <Juan Carlos Velarde - Last Filed: 07/12/17 20:48> Results - Vital Signs Recent Vital Signs: Last Vital Signs Temp 98.8 F 07/12/17 17:49 Pulse 82 07/12/17 17:49 Resp 19 07/12/17 17:49 BP 140/60 07/12/17 17:49 Pulse Ox 96 07/12/17 17:49 - Labs Result Diagrams: 07/12/17 06:00 07/12/17 06:00 Labs: Laboratory Results - last 24 hr 07/12/17 07/12/17 07/12/17 00:48 06:00 06:00 WBC 9.4 RBC 3.10 L Hgb 8.8 L Hct 26.9 L MCV 86.8 MCH 28.4 MCHC 32.7 RDW 16.3 H Plt Count 206 MPV 9.7 Sodium 138 Potassium 4.0 Chloride 100 Carbon Dioxide 30 Anion Gap 12 BUN 12 Creatinine 1.0 Est GFR ( Amer) > 60 Est GFR (Non-Af Amer) 54 POC Glucose (mg/dL) 152 H Random Glucose 133 H Calcium 8.4 Iron TIBC % Saturation Ferritin 67.1 Total Bilirubin 0.5 AST 37 H ALT 30 Alkaline Phosphatase 131 H Total Protein 6.6 Albumin 3.7 Globulin 2.9 Albumin/Globulin Ratio 1.3 Procalcitonin 07/12/17 07/12/17 07/12/17 06:00 07:00 08:10 WBC RBC Hgb Hct MCV MCH MCHC RDW Plt Count MPV Sodium Potassium Chloride Carbon Dioxide Anion Gap BUN Creatinine Est GFR ( Amer) Est GFR (Non-Af Amer) POC Glucose (mg/dL) 133 H Random Glucose Calcium Iron 10 L TIBC 238 L % Saturation 4 L Ferritin Total Bilirubin AST ALT Alkaline Phosphatase Total Protein Albumin Globulin Albumin/Globulin Ratio Procalcitonin 0.14 L 07/12/17 07/12/17 11:24 15:56 WBC RBC Hgb Hct MCV MCH MCHC RDW Plt Count MPV Sodium Potassium Chloride Carbon Dioxide Anion Gap BUN Creatinine Est GFR ( Amer) Est GFR (Non-Af Amer) POC Glucose (mg/dL) 147 H 119 H Random Glucose Calcium Iron TIBC % Saturation Ferritin Total Bilirubin AST ALT Alkaline Phosphatase Total Protein Albumin Globulin Albumin/Globulin Ratio Procalcitonin Assessment & Plan - Assessment and Plan (Free Text) Plan: Pt seen and examined. Agree with above note and plan of director medical surgical. Meds and labs have been reviewed. She had a fever this morning. ID consult. Pt is on Abx.
[2017-07-12] MEDS: Piperacillin/Tazobact 3.375 gm 100 ML IVPB SCH ×2 (15:50→17:55)
--- NOTE | 2017-07-12 16:13 | CP.PCM.CON ---
<Michael Anders - Last Filed: 07/12/17 15:56> History of Present Illness - History of Present Illness History of Present Illness: PGY4 Initial GI Consult Joy Evangelista is a 71 year old female with a hx of H.Pykori, Hypertension, Diabetes, Dyspepsia, Gastritis, Antritis who presents with abdominal pain. She reports LUQ pain. Onset has been for 2 days. she states that her pain at one point was 10 out of 10. She denies any aggravating or alleviating factors. She states that there is no association with food. She notes having fever and chills. Denies any nausea, vomiting or diarrhea. She notes that she has a hx of constipation and her last BM was yesterday. She denies any melana, hematemesis, or coffee-ground emesis. 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 She has also seen Dr. Amado as an outpt and was diagnosed with H. pylori and was treated, but she never followed up for breath test to confirm eradication. As an out pt, She states her abd pain improved with omeprazole. She had evaluation including US (negative for gallstones) and endoscopy recently (gastritis). She has had recent colonoscopy and according to her there were no sig findings. She denies chest pain or sob. She is a poor historian. Medical History: Hypertension, Diabetes, Dyspepsia, Gastritis, Antritis. Surgical History: none Endo hx: colonoscopy 02/2016. Family hx: denies colonoscopy Social hx: denies any smoking, drinking or illicit drugs ROS: 12 point ROS conducted, neg other than above Past Patient History - Infectious Disease Hx of Infectious Diseases: None - Tetanus Immunizations Tetanus Immunization: Unknown - Past Social History Smoking Status: Never Smoked - CARDIAC Hx Cardiac Disorders: Yes Hx Hypertension: Yes - PULMONARY Hx Respiratory Disorders: Yes Hx Chronic Obstructive Pulmonary Disease (COPD): Yes - NEUROLOGICAL Hx Neurological Disorder: Yes HX Cerebrovascular Accident: Yes - HEENT Hx HEENT Problems: Yes Hx Cataracts: Yes - RENAL Hx Chronic Kidney Disease: No - ENDOCRINE/METABOLIC Hx Endocrine Disorders: Yes Hx Diabetes Mellitus Type 2: Yes - HEMATOLOGICAL/ONCOLOGICAL Hx Blood Disorders: No - INTEGUMENTARY Hx Dermatological Problems: No - MUSCULOSKELETAL/RHEUMATOLOGICAL Hx Musculoskeletal Disorders: No Hx Falls: No - GASTROINTESTINAL Hx Gastrointestinal Disorders: Yes Hx Gastroesophageal Reflux: Yes - GENITOURINARY/GYNECOLOGICAL Hx Genitourinary Disorders: Yes Hx Urinary Tract Infection: Yes - PSYCHIATRIC Hx Psychophysiologic Disorder: No Hx Substance Use: No - SURGICAL HISTORY Hx Cardiac Catheterization: No Hx Coronary Stent: No - ANESTHESIA Hx Anesthesia: No Meds Allergies/Adverse Reactions: Allergies Allergy/AdvReac Type Severity Reaction Status Date / Time No Known Allergies Allergy Verified 07/11/17 19:53 - Medications Medications: Current Medications Acetaminophen (Tylenol 325mg Tab) 650 mg PO Q4 PRN PRN Reason: Fever >100.4 F Last Admin: 07/12/17 07:00 Dose: 650 mg Amitriptyline HCl (Elavil) 25 mg PO DAILY [facility] Last Admin: 07/12/17 10:09 Dose: 25 mg Arformoterol Tartrate (Brovana) 15 mcg IH DAILY@0800 [facility] Aspirin (Aspirin Chewable) 81 mg PO DAILY [facility] Last Admin: 07/12/17 10:09 Dose: 81 mg Atorvastatin Calcium (Lipitor) 20 mg PO DAILY [facility] Last Admin: 07/12/17 10:09 Dose: 20 mg Budesonide (Pulmicort Respules) 0.25 mg IH DAILY@0800 [facility] Last Admin: 07/12/17 07:53 Dose: 0.25 mg Donepezil HCl (Aricept) 10 mg PO DAILY [facility] Last Admin: 07/12/17 10:09 Dose: 10 mg Doxycycline Hyclate (Doryx) 100 mg PO Q12 [facility] PRN Reason: Protocol Stop: 07/21/17 15:36 Ferrous Sulfate (Feosol) 324 mg PO TID [facility] Last Admin: 07/12/17 13:31 Dose: 324 mg Glipizide (Glucotrol) 5 mg PO ACB [facility] Last Admin: 07/12/17 08:27 Dose: 5 mg Piperacillin Sod/Tazobactam Sod (Zosyn 3.375 In Ns 100ml) 100 mls @ 200 mls/hr IVPB Q6 [facility] PRN Reason: Protocol Stop: 07/21/17 15:46 Insulin Human Regular (Humulin R Med) 0 units SC ACHS [facility] PRN Reason: Protocol Last Admin: 07/12/17 11:53 Dose: Not Given Metoprolol Tartrate (Lopressor) 25 mg PO DAILY [facility] Last Admin: 07/12/17 10:09 Dose: 25 mg Physical Exam - Constitutional Appears: Well, Non-toxic, No Acute Distress - Head Exam Head Exam: ATRAUMATIC, NORMOCEPHALIC - Eye Exam Eye Exam: Normal appearance - ENT Exam ENT Exam: Mucous Membranes Moist, Normal Exam - Respiratory Exam Respiratory Exam: Clear to Auscultation Bilateral, NORMAL BREATHING PATTERN. absent: Rales, Rhonchi, Wheezes, Respiratory Distress - Cardiovascular Exam Cardiovascular Exam: REGULAR RHYTHM, +S1, +S2 - GI/Abdominal Exam GI & Abdominal Exam: Normal Bowel Sounds, Soft. absent: Guarding, Pulsatile Mass, Rebound, Rigid - Extremities Exam Extremities exam: Negative for: joint swelling, pedal edema - Neurological Exam Neurological exam: Alert, Oriented x3 - Psychiatric Exam Psychiatric exam: Normal Affect, Normal Mood - Skin Skin Exam: Dry, Intact, Normal Color, Warm Results - Vital Signs Recent Vital Signs: Last Vital Signs Temp 99.6 F 07/12/17 08:00 Pulse 71 07/12/17 10:09 Resp 20 07/12/17 06:00 BP 114/56 L 07/12/17 10:09 Pulse Ox 97 07/12/17 06:00 - Labs Result Diagrams: 07/12/17 06:00 07/12/17 06:00 Labs: Laboratory Results - last 24 hr 07/12/17 07/12/17 07/12/17 00:48 06:00 06:00 WBC 9.4 RBC 3.10 L Hgb 8.8 L Hct 26.9 L MCV 86.8 MCH 28.4 MCHC 32.7 RDW 16.3 H Plt Count 206 MPV 9.7 Sodium 138 Potassium 4.0 Chloride 100 Carbon Dioxide 30 Anion Gap 12 BUN 12 Creatinine 1.0 Est GFR ( Amer) > 60 Est GFR (Non-Af Amer) 54 POC Glucose (mg/dL) 152 H Random Glucose 133 H Calcium 8.4 Iron TIBC % Saturation Ferritin 67.1 Total Bilirubin 0.5 AST 37 H ALT 30 Alkaline Phosphatase 131 H Total Protein 6.6 Albumin 3.7 Globulin 2.9 Albumin/Globulin Ratio 1.3 07/12/17 07/12/17 07/12/17 06:00 08:10 11:24 WBC RBC Hgb Hct MCV MCH MCHC RDW Plt Count MPV Sodium Potassium Chloride Carbon Dioxide Anion Gap BUN Creatinine Est GFR ( Amer) Est GFR (Non-Af Amer) POC Glucose (mg/dL) 133 H 147 H Random Glucose Calcium Iron 10 L TIBC 238 L % Saturation 4 L Ferritin Total Bilirubin AST ALT Alkaline Phosphatase Total Protein Albumin Globulin Albumin/Globulin Ratio Assessment & Plan - Assessment and Plan (Free Text) Assessment: This pt is a 72F w/ hx of HTN, HL, h.pylori, gastritis, and anemia who presents with abd pain and UTI. Etiology of her abd pain is likely 2/2 constipation. He also has a hx of h. pylori w/o confirmation of eradication. Abd pain, likely 2/2 constipation Hx of H/ Pylori Anemia likely a mixed etiology of chronic disease and iron def Plan: start miralax BID continue miralax daily h. pylori stool antigen start PPI daily recommend proper bowel habits follow-up with Dr. Amado as an oupt in 2 weeks treat for UTI as per primary team advance diet as tolerated D/W Dr. Amado <Ever Amado - Last Filed: 07/12/17 19:19> Meds - Medications Medications: Current Medications Acetaminophen (Tylenol 325mg Tab) 650 mg PO Q4 PRN PRN Reason: Fever >100.4 F Last Admin: 07/12/17 07:00 Dose: 650 mg Amitriptyline HCl (Elavil) 25 mg PO DAILY [facility] Last Admin: 07/12/17 10:09 Dose: 25 mg Arformoterol Tartrate (Brovana) 15 mcg IH DAILY@0800 [facility] Aspirin (Aspirin Chewable) 81 mg PO DAILY [facility] Last Admin: 07/12/17 10:09 Dose: 81 mg Atorvastatin Calcium (Lipitor) 20 mg PO DAILY [facility] Last Admin: 07/12/17 10:09 Dose: 20 mg Budesonide (Pulmicort Respules) 0.25 mg IH DAILY@0800 [facility] Last Admin: 07/12/17 07:53 Dose: 0.25 mg Donepezil HCl (Aricept) 10 mg PO DAILY [facility] Last Admin: 07/12/17 10:09 Dose: 10 mg Doxycycline Hyclate (Doryx) 100 mg PO Q12 [facility] PRN Reason: Protocol Stop: 07/21/17 15:36 Last Admin: 07/12/17 15:51 Dose: 100 mg Ferrous Sulfate (Feosol) 324 mg PO TID [facility] Last Admin: 07/12/17 17:54 Dose: 324 mg Glipizide (Glucotrol) 5 mg PO ACB [facility] Last Admin: 07/12/17 08:27 Dose: 5 mg Piperacillin Sod/Tazobactam Sod (Zosyn 3.375 In Ns 100ml) 100 mls @ 200 mls/hr IVPB Q6 [facility] PRN Reason: Protocol Stop: 07/21/17 15:46 Last Admin: 07/12/17 17:55 Dose: 200 mls/hr Insulin Human Regular (Humulin R Med) 0 units SC ACHS [facility] PRN Reason: Protocol Last Admin: 07/12/17 17:42 Dose: Not Given Metoprolol Tartrate (Lopressor) 25 mg PO DAILY [facility] Last Admin: 07/12/17 10:09 Dose: 25 mg Polyethylene Glycol (Miralax) 17 gm PO BID [facility] Last Admin: 07/12/17 17:55 Dose: 17 gm Results - Vital Signs Recent Vital Signs: Last Vital Signs Temp 98.8 F 07/12/17 17:49 Pulse 82 07/12/17 17:49 Resp 19 07/12/17 17:49 BP 140/60 07/12/17 17:49 Pulse Ox 96 07/12/17 17:49 - Labs Result Diagrams: 07/12/17 06:00 07/12/17 06:00 Labs: Laboratory Results - last 24 hr 07/12/17 07/12/17 07/12/17 00:48 06:00 06:00 WBC 9.4 RBC 3.10 L Hgb 8.8 L Hct 26.9 L MCV 86.8 MCH 28.4 MCHC 32.7 RDW 16.3 H Plt Count 206 MPV 9.7 Sodium 138 Potassium 4.0 Chloride 100 Carbon Dioxide 30 Anion Gap 12 BUN 12 Creatinine 1.0 Est GFR ( Amer) > 60 Est GFR (Non-Af Amer) 54 POC Glucose (mg/dL) 152 H Random Glucose 133 H Calcium 8.4 Iron TIBC % Saturation Ferritin 67.1 Total Bilirubin 0.5 AST 37 H ALT 30 Alkaline Phosphatase 131 H Total Protein 6.6 Albumin 3.7 Globulin 2.9 Albumin/Globulin Ratio 1.3 Procalcitonin 07/12/17 07/12/17 07/12/17 06:00 07:00 08:10 WBC RBC Hgb Hct MCV MCH MCHC RDW Plt Count MPV Sodium Potassium Chloride Carbon Dioxide Anion Gap BUN Creatinine Est GFR ( Amer) Est GFR (Non-Af Amer) POC Glucose (mg/dL) 133 H Random Glucose Calcium Iron 10 L TIBC 238 L % Saturation 4 L Ferritin Total Bilirubin AST ALT Alkaline Phosphatase Total Protein Albumin Globulin Albumin/Globulin Ratio Procalcitonin 0.14 L 07/12/17 11:24 WBC RBC Hgb Hct MCV MCH MCHC RDW Plt Count MPV Sodium Potassium Chloride Carbon Dioxide Anion Gap BUN Creatinine Est GFR ( Amer) Est GFR (Non-Af Amer) POC Glucose (mg/dL) 147 H Random Glucose Calcium Iron TIBC % Saturation Ferritin Total Bilirubin AST ALT Alkaline Phosphatase Total Protein Albumin Globulin Albumin/Globulin Ratio Procalcitonin Attending/Attestation - Attestation I have personally seen and examined this patient.: Yes I have fully participated in the care of the patient.: Yes I have reviewed all pertinent clinical information: Yes Notes (Text): 07/12/17 19:18 72 year old female with h/o H pylori admitted with abdominal pain. 1. Abdominal pain 2. Constipation 3. Anemia Plan: -recommend PPI daily and bowel regimen with miralax -diet as tolerated -follow up outpatient 2 weeks -consider repeat outpatient colonoscopy for anemia
[2017-07-12] MEDS ORDERED: Iohexol 240 (50 ml) ONE (17:01)
[2017-07-12] MEDS: POLYETHYLENE GLYCOL 3350 17 GM/Dose PACKET PO SCH (17:55)
--- NOTE | 2017-07-12 20:25 | CT ---
EXAM: CT Abdomen and Pelvis Without Intravenous Contrast EXAM DATE/TIME: 07/12/2017 3:33 PM CLINICAL HISTORY: The patient age is 72 years old and is female; Pain; Abdominal pain; Generalized; Additional info: Abd pain and fever Facility exam id and description: Ct abdpels abd pelvis po contrast only TECHNIQUE: Axial computed tomography images of the abdomen and pelvis without intravenous contrast. All CT scans at this facility use one or more dose reduction techniques, viz.: automated exposure control; ma/kV adjustment per patient size (including targeted exams where dose is matched to indication; i.e. head); or iterative reconstruction technique. Coronal and sagittal reformatted images were created and reviewed. COMPARISON: US - ABDOMEN COMPLETE 07/11/2017 4:10:41 PM FINDINGS: Lower thorax: Atelectatic changes identified at the left lung base. ABDOMEN: Liver: No mass. Gallbladder and bile ducts: No calcified stones. No ductal dilation. Pancreas: Normal contour. No ductal dilation. Spleen: No splenomegaly. Adrenals: No mass. Kidneys and ureters: There is fullness of the left renal collecting system and left ureter. No obstructing calculus is identified. Left perinephric stranding is identified, and pyelonephritis cannot be excluded. There is no hydronephrosis of the right kidney. Stomach and bowel: Moderate fecal material is identified within the colon. No obstruction. Appendix: The appendix is not visualized. PELVIS: Bladder: No stones. Reproductive: Unremarkable as visualized. ABDOMEN and PELVIS: Intraperitoneal space: No free air. Bones/joints: There is grade I anterolisthesis of L4 on L5. Osteopenia. Hypertrophic degenerative changes are noted within the spine. There is increased concavity of the endplates at the T10 vertebral level. Soft tissues: There is a small herniation of fat within the umbilicus. Vasculature: There is atherosclerotic calcification of the abdominal aorta. No abdominal aortic aneurysm. Lymph nodes: No enlarged lymph nodes. IMPRESSION: 1. There is fullness of the left renal collecting system and left ureter. No obstructing calculus is identified. Left perinephric stranding is identified, and pyelonephritis cannot be excluded. Clinical correlation is recommended. 2. There is a small herniation of fat within the umbilicus. 3. Incidental/non-acute findings are described above.
--- NOTE | 2017-07-12 21:37 | CON ---
LOCATION: The patient is seen in [facility], bed 1. CHIEF COMPLAINT: Weakness from several days. HISTORY OF PRESENT ILLNESS: The is a 72-year-old female, who has past medical history significant for hypertension, diabetes, gastritis, cataract, deafness, cerebrovascular accident, depression, anxiety, chronic obstructive lung disease, anemia, who was admitted through the emergency, was seen by YG Flores, in the emergency room with a chief complaint of female genitouria according to the note, and she had fevers at home and chills. She did have nausea and cough which was productive, intermittent abdominal discomfort and no chest pain now. No headaches or blurred vision and no sore throat. There is mild shortness of breath. PAST MEDICAL HISTORY: Significant for diabetes mellitus, hypertension, chronic obstructive lung disease, cerebrovascular accident, anemia, depression, anxiety, and gastritis. PAST SURGICAL HISTORY: Noncontributory. ALLERGIES: THE PATIENT HAS NO KNOWN ALLERGIES. MEDICATIONS AT HOME: Include atorvastatin, amlodipine, omeprazole, glipizide, amitriptyline, metoprolol, and clonidine. PHYSICAL EXAMINATION: GENERAL: The is in bed, no acute distress, answering questions. VITAL SIGNS: Temperature of 98, T-max was 101.3, blood pressure is 110/60, respiratory rate of 20, and a heart rate of 79, it was up to 94. HEENT: Unremarkable. NECK: Supple. LUNGS: Decreased breath sounds. HEART: Normal S1 and S2. ABDOMEN: Soft, mild tenderness. No rebound or guarding. LABORATORY DATA: Reveals a white count of 11,300, hemoglobin of 9, platelets of 198, coagulation is noted. Chemistries reveals a BUN of 12, creatinine of 1.0. Urinalysis is noted with 5-10 wbc's and small blood and small leukocyte esterase. Urine cultures, no growth. The patient had a chest x-ray which revealed a well inflated lungs, are clear. The patient has abdominal ultrasound, normal exam. History of physical examination is reviewed. The patient had recent hospitalization earlier last month but only for 24 hours for chest pain. ASSESSMENT AND PLAN: This is a 72-year-old female with hypertension, chronic obstructive lung disease, diabetes, gastritis, anemia, cataract, deafness, cerebrovascular accident, anxiety, depression, presenting with a 101 temperature and 94, tachycardia, heart rate with unremarkable urinalysis and urine culture and left-sided abdominal pain. Systemic inflammatory response syndrome, must rule out gastrointestinal pathology/diverticulitis. We will start the patient on Zosyn and order a CAT scan of the abdomen and check on the blood cultures, check on the procalcitonin. The patient does have some cough, although the chest x-ray is reported to be negative. We will able to evaluate the lungs and CAT scan of the abdomen also at least a lower part, and we will make further recommendation upon availability of the initial results. We will make further recommendations. We will treat the patient with Zosyn and should have a cardiac evaluation including troponins and EKG. We will also add doxycycline for atypical incase it is in the lungs pending initial workup results. No EKG is available at this time and no troponins are available at this time. We will also check on the procalcitonin which is pending. Sergio Maria MD
[2017-07-13] MEDS: Piperacillin/Tazobact 3.375 gm 100 ML IVPB SCH ×4 (01:14→18:05)
[2017-07-13 06:53] LABS: BASO # 0.01 K/mm3 (0.0-2.0); BASO % 0.1 % (0.0-3.0); EOS # 0.1 (0.0-0.7); GRAN # 6.16 (1.4-6.5); GRAN % 70.7 % (50.0-68.0); HEMATOCRIT 27.5 % (36.0-48.0); LYMPH # 1.6 (1.2-3.4); LYMPH % 18.4 % (22.0-35.0); MEAN CELL VOLUME 87.6 fl (80.0-105.0); MEAN CORPUSCULAR HEMOGLOBIN 28.3 pg (25.0-35.0); MEAN CORPUSCULAR HGB CONC 32.4 g/dl (31.0-37.0); MEAN PLATELET VOLUME 9.5 fl (7.0-11.0); MONO # 0.9 (0.1-0.6); MONO % 9.8 % (1.0-6.0); RED CELL DISTRIBUTION WIDTH 16.3 % (11.5-14.5); WHITE BLOOD COUNT 8.7 10^3/ul (4.5-11.0)
[2017-07-13 07:09] LABS: ALB/GLOB RATIO 1.2 (1.1-1.8); ALKALINE PHOSPHATASE 165 U/L (38-126); ALT/SGPT 66 U/L (7-56); AST/SGOT 64 U/L (14-36); BILIRUBIN,TOTAL 0.6 mg/dL (0.2-1.3); BLOOD UREA NITROGEN 14 mg/dL (7-21); CALCIUM 8.6 mg/dL (8.4-10.5); CARBON DIOXIDE 28 mmol/L (21-33); CHLORIDE 99 mmol/L (95-110); GFR AFRICAN-AMERICAN > 60; GLUCOSE,RANDOM 117 mg/dL (70-110); POTASSIUM 4.2 mmol/L (3.6-5.0); SODIUM 138 mmol/L (132-148); TOTAL PROTEIN 6.9 g/dL (5.8-8.3)
[2017-07-13] MEDS: Budesonide 0.25 mg/2 ml Inhal Susp UD IH SCH (07:34)
--- NOTE | 2017-07-13 07:57 | CP.PCM.PN ---
Subjective - Date & Time of Evaluation Date of Evaluation: 07/13/17 Time of Evaluation: 07:10 - Subjective Subjective: PGY4 GI Follow Up Pt seen and examined bedside Abd pain resolved Tolerating diet Denies any nausea, vomiting or diarrhea ROS: 10 point ROS conducted, neg other than above Objective - Vital Signs/Intake and Output Vital Signs (last 24 hours): Temp Pulse Resp BP Pulse Ox 99.5 F 71 20 107/56 L 96 07/13/17 06:00 07/13/17 06:00 07/13/17 06:00 07/13/17 06:00 07/13/17 06:00 - Medications Medications: Current Medications Acetaminophen (Tylenol 325mg Tab) 650 mg PO Q4 PRN PRN Reason: Fever >100.4 F Last Admin: 07/13/17 02:16 Dose: 650 mg Amitriptyline HCl (Elavil) 25 mg PO DAILY [facility] Last Admin: 07/12/17 10:09 Dose: 25 mg Arformoterol Tartrate (Brovana) 15 mcg IH DAILY@0800 [facility] Aspirin (Aspirin Chewable) 81 mg PO DAILY [facility] Last Admin: 07/12/17 10:09 Dose: 81 mg Atorvastatin Calcium (Lipitor) 20 mg PO DAILY [facility] Last Admin: 07/12/17 10:09 Dose: 20 mg Budesonide (Pulmicort Respules) 0.25 mg IH DAILY@0800 [facility] Last Admin: 07/13/17 07:34 Dose: 0.25 mg Donepezil HCl (Aricept) 10 mg PO DAILY [facility] Last Admin: 07/12/17 10:09 Dose: 10 mg Doxycycline Hyclate (Doryx) 100 mg PO Q12 [facility] PRN Reason: Protocol Stop: 07/21/17 15:36 Last Admin: 07/12/17 21:12 Dose: 100 mg Ferrous Sulfate (Feosol) 324 mg PO TID [facility] Last Admin: 07/12/17 17:54 Dose: 324 mg Glipizide (Glucotrol) 5 mg PO ACB [facility] Last Admin: 07/12/17 08:27 Dose: 5 mg Piperacillin Sod/Tazobactam Sod (Zosyn 3.375 In Ns 100ml) 100 mls @ 200 mls/hr IVPB Q6 [facility] PRN Reason: Protocol Stop: 07/21/17 15:46 Last Admin: 07/13/17 06:47 Dose: 200 mls/hr Insulin Human Regular (Humulin R Med) 0 units SC ACHS [facility] PRN Reason: Protocol Last Admin: 07/12/17 21:10 Dose: Not Given Metoprolol Tartrate (Lopressor) 25 mg PO DAILY [facility] Last Admin: 07/12/17 10:09 Dose: 25 mg Polyethylene Glycol (Miralax) 17 gm PO BID [facility] Last Admin: 07/12/17 17:55 Dose: 17 gm - Labs Labs: 07/13/17 06:10 07/13/17 06:10 PT 10.9 Seconds (9.9-11.8) 07/11/17 13:50 INR 1.01 (0.93-1.08) 07/11/17 13:50 APTT 32.4 Seconds (23.7-30.8) H 07/11/17 13:50 - Constitutional Appears: Well, No Acute Distress - Head Exam Head Exam: ATRAUMATIC, NORMOCEPHALIC - Eye Exam Eye Exam: Normal appearance - ENT Exam ENT Exam: Mucous Membranes Moist - Respiratory Exam Respiratory Exam: Clear to Ausculation Bilateral, NORMAL BREATHING PATTERN. absent: Prolonged Expiratory Phase, Rales, Rhonchi, Wheezes, Respiratory Distress - Cardiovascular Exam Cardiovascular Exam: REGULAR RHYTHM, +S1, +S2
[2017-07-13] MEDS: Insulin Reg-MEDIUM-Coverage SC SCH ×4 (08:26→22:27)
--- NOTE | 2017-07-13 09:18 | CP.PCM.PN ---
<Penny Hansen - Last Filed: 07/13/17 10:40> Subjective - Date & Time of Evaluation Date of Evaluation: 07/13/17 Time of Evaluation: :17 - Subjective Subjective: PGY-[address] Velarde Patient seen and examined at bedside. No acute distress. Patient states that she is feeling better. She states that her abd pain has resolved. She denies chest pain, sob, abd pain, n/v/d/c. Objective - Vital Signs/Intake and Output Vital Signs (last 24 hours): Temp Pulse Resp BP Pulse Ox 99.5 F 71 20 107/56 L 96 07/13/17 06:00 07/13/17 06:00 07/13/17 06:00 07/13/17 06:00 07/13/17 06:00 - Medications Medications: Current Medications Acetaminophen (Tylenol 325mg Tab) 650 mg PO Q4 PRN PRN Reason: Fever >100.4 F Last Admin: 07/13/17 02:16 Dose: 650 mg Amitriptyline HCl (Elavil) 25 mg PO DAILY [facility] Last Admin: 07/12/17 10:09 Dose: 25 mg Arformoterol Tartrate (Brovana) 15 mcg IH DAILY@0800 [facility] Aspirin (Aspirin Chewable) 81 mg PO DAILY [facility] Last Admin: 07/12/17 10:09 Dose: 81 mg Atorvastatin Calcium (Lipitor) 20 mg PO DAILY [facility] Last Admin: 07/12/17 10:09 Dose: 20 mg Budesonide (Pulmicort Respules) 0.25 mg IH DAILY@0800 [facility] Last Admin: 07/13/17 07:34 Dose: 0.25 mg Donepezil HCl (Aricept) 10 mg PO DAILY [facility] Last Admin: 07/12/17 10:09 Dose: 10 mg Doxycycline Hyclate (Doryx) 100 mg PO Q12 [facility] PRN Reason: Protocol Stop: 07/21/17 15:36 Last Admin: 07/12/17 21:12 Dose: 100 mg Ferrous Sulfate (Feosol) 324 mg PO TID [facility] Last Admin: 07/12/17 17:54 Dose: 324 mg Glipizide (Glucotrol) 5 mg PO ACB [facility] Last Admin: 07/13/17 09:05 Dose: 5 mg Piperacillin Sod/Tazobactam Sod (Zosyn 3.375 In Ns 100ml) 100 mls @ 200 mls/hr IVPB Q6 [facility] PRN Reason: Protocol Stop: 07/21/17 15:46 Last Admin: 07/13/17 06:47 Dose: 200 mls/hr Insulin Human Regular (Humulin R Med) 0 units SC ACHS [facility] PRN Reason: Protocol Last Admin: 07/13/17 08:26 Dose: Not Given Metoprolol Tartrate (Lopressor) 25 mg PO DAILY [facility] Last Admin: 07/12/17 10:09 Dose: 25 mg Polyethylene Glycol (Miralax) 17 gm PO BID [facility] Last Admin: 07/12/17 17:55 Dose: 17 gm - Labs Labs: 07/13/17 06:10 07/13/17 06:10 PT 10.9 Seconds (9.9-11.8) 07/11/17 13:50 INR 1.01 (0.93-1.08) 07/11/17 13:50 APTT 32.4 Seconds (23.7-30.8) H 07/11/17 13:50 - Constitutional Appears: Well, No Acute Distress - Head Exam Head Exam: ATRAUMATIC, NORMAL INSPECTION, NORMOCEPHALIC - Eye Exam Eye Exam: EOMI, Normal appearance - ENT Exam ENT Exam: Mucous Membranes Moist - Respiratory Exam Respiratory Exam: Clear to Ausculation Bilateral, NORMAL BREATHING PATTERN. absent: Decreased Breath Sounds, Rales, Rhonchi, Wheezes, Respiratory Distress - Cardiovascular Exam Cardiovascular Exam: REGULAR RHYTHM, +S1, +S2. absent: Tachycardia, Diastolic murmur, Murmur - GI/Abdominal Exam GI & Abdominal Exam: Soft, Normal Bowel Sounds. absent: Distended, Firm, Guarding, Tenderness - Extremities Exam Extremities Exam: Normal Inspection. absent: Pedal Edema, Tenderness - Neurological Exam Neurological Exam: Alert, Awake, Oriented x3 - Skin Skin Exam: Dry, Intact, Normal Color, Warm Assessment and Plan - Assessment and Plan (Free Text) Assessment: 72 yo female with pmh of DM, HTN, copd, and high cholesterol present with 2 day history of subjective fever, chills, productive cough. Plan: 1. sepsis - sirs 3/4 - UA small leukocyte esterase, urine cultures negative - CXR negative fpr active disease - abd US was normal, negative for gall stones, hydronephrosis - CT scan of abd ordered to r/o abd infxn - rapide flu ordered - abx changed to zosyn and doxy - ID consulted 2. anemia - Hgb below baseline - iron studies show low iron - start feosol - guiac positive stool - GI recommends outpatinet colonoscopy 3. abd pain - resolved - most likely 2/2 constipation - started on mirlax 3. hyponatremia - resolved - most likely secondary to hypovolemia - will monitor 4. DM II - cont glipizide - iss - fingerstick ACHS 5. HTN - patient BP is boarder line low - restarted lopressor - will hold other home meds - cont to monitor 6. copd - cont home pulmicort <Juan Carlos Velarde S - Last Filed: 07/13/17 18:26> Objective - Vital Signs/Intake and Output Vital Signs (last 24 hours): Temp Pulse Resp BP Pulse Ox 98.3 F 86 19 118/79 98 07/13/17 16:45 07/13/17 16:45 07/13/17 16:45 07/13/17 16:45 07/13/17 16:45 Intake and Output: 07/13/17 07/13/17 06:59 18:59 Intake Total 600 Balance 600 - Medications Medications: Current Medications Acetaminophen (Tylenol 325mg Tab) 650 mg PO Q4 PRN PRN Reason: Fever >100.4 F Last Admin: 07/13/17 02:16 Dose: 650 mg Amitriptyline HCl (Elavil) 25 mg PO DAILY [facility] Last Admin: 07/13/17 10:46 Dose: 25 mg Arformoterol Tartrate (Brovana) 15 mcg IH DAILY@0800 [facility] Aspirin (Aspirin Chewable) 81 mg PO DAILY [facility] Last Admin: 07/13/17 10:47 Dose: 81 mg Atorvastatin Calcium (Lipitor) 20 mg PO DAILY [facility] Last Admin: 07/13/17 10:49 Dose: 20 mg Budesonide (Pulmicort Respules) 0.25 mg IH DAILY@0800 [facility] Last Admin: 07/13/17 07:34 Dose: 0.25 mg Donepezil HCl (Aricept) 10 mg PO DAILY [facility] Last Admin: 07/13/17 10:47 Dose: 10 mg Doxycycline Hyclate (Doryx) 100 mg PO Q12 [facility] PRN Reason: Protocol Stop: 07/21/17 15:36 Last Admin: 07/13/17 10:47 Dose: 100 mg Ferrous Sulfate (Feosol) 324 mg PO TID [facility] Last Admin: 07/13/17 18:06 Dose: 324 mg Glipizide (Glucotrol) 5 mg PO ACB [facility] Last Admin: 07/13/17 09:05 Dose: 5 mg Piperacillin Sod/Tazobactam Sod (Zosyn 3.375 In Ns 100ml) 100 mls @ 200 mls/hr IVPB Q6 [facility] PRN Reason: Protocol Stop: 07/21/17 15:46 Last Admin: 07/13/17 18:05 Dose: 200 mls/hr Insulin Human Regular (Humulin R Med) 0 units SC ACHS [facility] PRN Reason: Protocol Last Admin: 07/13/17 16:38 Dose: Not Given Metoprolol Tartrate (Lopressor) 25 mg PO DAILY [facility] Last Admin: 07/13/17 10:47 Dose: 25 mg Polyethylene Glycol (Miralax) 17 gm PO BID [facility] Last Admin: 07/13/17 18:06 Dose: 17 gm - Labs Labs: 07/13/17 06:10 07/13/17 06:10 PT 10.9 Seconds (9.9-11.8) 07/11/17 13:50 INR 1.01 (0.93-1.08) 07/11/17 13:50 APTT 32.4 Seconds (23.7-30.8) H 07/11/17 13:50 Assessment and Plan - Assessment and Plan (Free Text) Plan: Pt seen and examined. I reviewed and agree with the medical services manager note.No fevers. Hyponatremia improved. Meds and labs reviewed
[2017-07-13] MEDS: POLYETHYLENE GLYCOL 3350 17 GM/Dose PACKET PO SCH ×2 (10:46→18:06)
--- NOTE | 2017-07-13 11:10 | CP.PCM.PN ---
<Michael Anders - Last Filed: 07/13/17 11:10> Subjective - Date & Time of Evaluation Date of Evaluation: 07/13/17 Time of Evaluation: 08:00 - Subjective Subjective: PGY 4 GI follow-up Pt seen and examined bedside Denies any abd pain +BM tolerating diet Denies any nausea or vomiting ROS: 10 point ROS conducted neg other than above Objective - Vital Signs/Intake and Output Vital Signs (last 24 hours): Temp Pulse Resp BP Pulse Ox 99.5 F 71 20 107/56 L 96 07/13/17 06:00 07/13/17 10:47 07/13/17 06:00 07/13/17 10:47 07/13/17 06:00 - Medications Medications: Current Medications Acetaminophen (Tylenol 325mg Tab) 650 mg PO Q4 PRN PRN Reason: Fever >100.4 F Last Admin: 07/13/17 02:16 Dose: 650 mg Amitriptyline HCl (Elavil) 25 mg PO DAILY [facility] Last Admin: 07/13/17 10:46 Dose: 25 mg Arformoterol Tartrate (Brovana) 15 mcg IH DAILY@0800 [facility] Aspirin (Aspirin Chewable) 81 mg PO DAILY [facility] Last Admin: 07/13/17 10:47 Dose: 81 mg Atorvastatin Calcium (Lipitor) 20 mg PO DAILY [facility] Last Admin: 07/13/17 10:49 Dose: 20 mg Budesonide (Pulmicort Respules) 0.25 mg IH DAILY@0800 [facility] Last Admin: 07/13/17 07:34 Dose: 0.25 mg Donepezil HCl (Aricept) 10 mg PO DAILY [facility] Last Admin: 07/13/17 10:47 Dose: 10 mg Doxycycline Hyclate (Doryx) 100 mg PO Q12 [facility] PRN Reason: Protocol Stop: 07/21/17 15:36 Last Admin: 07/13/17 10:47 Dose: 100 mg Ferrous Sulfate (Feosol) 324 mg PO TID [facility] Last Admin: 07/13/17 10:50 Dose: 324 mg Glipizide (Glucotrol) 5 mg PO ACB [facility] Last Admin: 07/13/17 09:05 Dose: 5 mg Piperacillin Sod/Tazobactam Sod (Zosyn 3.375 In Ns 100ml) 100 mls @ 200 mls/hr IVPB Q6 [facility] PRN Reason: Protocol Stop: 07/21/17 15:46 Last Admin: 07/13/17 06:47 Dose: 200 mls/hr Insulin Human Regular (Humulin R Med) 0 units SC ACHS [facility] PRN Reason: Protocol Last Admin: 07/13/17 08:26 Dose: Not Given Metoprolol Tartrate (Lopressor) 25 mg PO DAILY [facility] Last Admin: 07/13/17 10:47 Dose: 25 mg Polyethylene Glycol (Miralax) 17 gm PO BID [facility] Last Admin: 07/13/17 10:46 Dose: 17 gm - Labs Labs: 07/13/17 06:10 07/13/17 06:10 PT 10.9 Seconds (9.9-11.8) 07/11/17 13:50 INR 1.01 (0.93-1.08) 07/11/17 13:50 APTT 32.4 Seconds (23.7-30.8) H 07/11/17 13:50 - Constitutional Appears: Well, No Acute Distress - Head Exam Head Exam: ATRAUMATIC, NORMOCEPHALIC - Eye Exam Eye Exam: Normal appearance - ENT Exam ENT Exam: Mucous Membranes Moist, Normal Exam - Respiratory Exam Respiratory Exam: Clear to Ausculation Bilateral, NORMAL BREATHING PATTERN. absent: Rales, Rhonchi, Wheezes - Cardiovascular Exam Cardiovascular Exam: REGULAR RHYTHM, +S1, +S2 - GI/Abdominal Exam GI & Abdominal Exam: Soft, Normal Bowel Sounds. absent: Guarding, Rigid, Tenderness, Diminished Bowel Sounds, Hyperactive Bowel Sounds, Organomegaly - Extremities Exam Extremities Exam: absent: Joint Swelling, Pedal Edema - Neurological Exam Neurological Exam: Alert, Awake, Oriented x3 - Psychiatric Exam Psychiatric exam: Normal Affect, Normal Mood - Skin Skin Exam: Dry, Intact, Normal Color, Warm Assessment and Plan - Assessment and Plan (Free Text) Assessment: This pt is a 72F w/ hx of HTN, HL, h.pylori, gastritis, and anemia who presents with abd pain and UTI. Etiology of her abd pain is likely 2/2 constipation. He also has a hx of h. pylori w/o confirmation of eradication. Abd pain, likely 2/2 constipation Hx of H/ Pylori Anemia likely a mixed etiology of chronic disease and iron def Plan: continue miralax daily h. pylori stool antigen, f/u continue PPI daily recommend proper bowel habits follow-up with Dr. Amado as an oupt in 2 weeks treat for UTI as per primary team advance diet as tolerated will sign off D/W Dr. Kinney <Alexey Kinney - Last Filed: 07/13/17 11:28> Objective - Vital Signs/Intake and Output Vital Signs (last 24 hours): Temp Pulse Resp BP Pulse Ox 99.5 F 71 20 107/56 L 96 07/13/17 06:00 07/13/17 10:47 07/13/17 06:00 07/13/17 10:47 07/13/17 06:00 - Medications Medications: Current Medications Acetaminophen (Tylenol 325mg Tab) 650 mg PO Q4 PRN PRN Reason: Fever >100.4 F Last Admin: 07/13/17 02:16 Dose: 650 mg Amitriptyline HCl (Elavil) 25 mg PO DAILY [facility] Last Admin: 07/13/17 10:46 Dose: 25 mg Arformoterol Tartrate (Brovana) 15 mcg IH DAILY@0800 [facility] Aspirin (Aspirin Chewable) 81 mg PO DAILY [facility] Last Admin: 07/13/17 10:47 Dose: 81 mg Atorvastatin Calcium (Lipitor) 20 mg PO DAILY [facility] Last Admin: 07/13/17 10:49 Dose: 20 mg Budesonide (Pulmicort Respules) 0.25 mg IH DAILY@0800 [facility] Last Admin: 07/13/17 07:34 Dose: 0.25 mg Donepezil HCl (Aricept) 10 mg PO DAILY [facility] Last Admin: 07/13/17 10:47 Dose: 10 mg Doxycycline Hyclate (Doryx) 100 mg PO Q12 [facility] PRN Reason: Protocol Stop: 07/21/17 15:36 Last Admin: 07/13/17 10:47 Dose: 100 mg Ferrous Sulfate (Feosol) 324 mg PO TID [facility] Last Admin: 07/13/17 10:50 Dose: 324 mg Glipizide (Glucotrol) 5 mg PO ACB [facility] Last Admin: 07/13/17 09:05 Dose: 5 mg Piperacillin Sod/Tazobactam Sod (Zosyn 3.375 In Ns 100ml) 100 mls @ 200 mls/hr IVPB Q6 [facility] PRN Reason: Protocol Stop: 07/21/17 15:46 Last Admin: 07/13/17 06:47 Dose: 200 mls/hr Insulin Human Regular (Humulin R Med) 0 units SC ACHS [facility] PRN Reason: Protocol Last Admin: 07/13/17 08:26 Dose: Not Given Metoprolol Tartrate (Lopressor) 25 mg PO DAILY [facility] Last Admin: 07/13/17 10:47 Dose: 25 mg Polyethylene Glycol (Miralax) 17 gm PO BID [facility] Last Admin: 07/13/17 10:46 Dose: 17 gm - Labs Labs: 07/13/17 06:10 07/13/17 06:10 PT 10.9 Seconds (9.9-11.8) 07/11/17 13:50 INR 1.01 (0.93-1.08) 07/11/17 13:50 APTT 32.4 Seconds (23.7-30.8) H 07/11/17 13:50 Attending/Attestation - Attestation I have personally seen and examined this patient.: Yes I have fully participated in the care of the patient.: Yes I have reviewed all pertinent clinical information, including history, physical exam and plan: Yes Notes (Text): 07/13/17 11:25 I have seen and examined patient with GI fellow. She is seen sitting at bedside , appears quite comfortable. Her abdominal pain has resolved following large bowel movement and she denies nausea, vomiting, fever/chills. Tolerating PO diet without difficulty. Review of vitals from today are normal. HTN Hyperlipidemia Abdominal pain, constipation - resolved UTI / pyelonephritis - Continue with diet as tolerated - Continue with antibiotics as per ID - Maintain bowel regimen to prevent recurrent constipation - H/H stable, continue to monitor, no overt blood loss noted - No further planned GI intervention, will sign off case. Patient should follow up with Dr. Amado as outpatient, please reconsult as necessary thank you.
--- NOTE | 2017-07-13 17:54 | CP.PCM.PN ---
Subjective - Date & Time of Evaluation Date of Evaluation: 07/13/17 Time of Evaluation: 10:40 - Subjective Subjective: Less pain in the left flank and left abdominal area. Less cough, no fevers. Objective - Vital Signs/Intake and Output Vital Signs (last 24 hours): Temp Pulse Resp BP Pulse Ox 99.5 F 71 20 107/56 L 96 07/13/17 06:00 07/13/17 06:00 07/13/17 06:00 07/13/17 06:00 07/13/17 06:00 - Medications Medications: Current Medications Acetaminophen (Tylenol 325mg Tab) 650 mg PO Q4 PRN PRN Reason: Fever >100.4 F Last Admin: 07/13/17 02:16 Dose: 650 mg Amitriptyline HCl (Elavil) 25 mg PO DAILY [facility] Last Admin: 07/12/17 10:09 Dose: 25 mg Arformoterol Tartrate (Brovana) 15 mcg IH DAILY@0800 [facility] Aspirin (Aspirin Chewable) 81 mg PO DAILY [facility] Last Admin: 07/12/17 10:09 Dose: 81 mg Atorvastatin Calcium (Lipitor) 20 mg PO DAILY [facility] Last Admin: 07/12/17 10:09 Dose: 20 mg Budesonide (Pulmicort Respules) 0.25 mg IH DAILY@0800 [facility] Last Admin: 07/13/17 07:34 Dose: 0.25 mg Donepezil HCl (Aricept) 10 mg PO DAILY [facility] Last Admin: 07/12/17 10:09 Dose: 10 mg Doxycycline Hyclate (Doryx) 100 mg PO Q12 [facility] PRN Reason: Protocol Stop: 07/21/17 15:36 Last Admin: 07/12/17 21:12 Dose: 100 mg Ferrous Sulfate (Feosol) 324 mg PO TID [facility] Last Admin: 07/12/17 17:54 Dose: 324 mg Glipizide (Glucotrol) 5 mg PO ACB [facility] Last Admin: 07/13/17 09:05 Dose: 5 mg Piperacillin Sod/Tazobactam Sod (Zosyn 3.375 In Ns 100ml) 100 mls @ 200 mls/hr IVPB Q6 [facility] PRN Reason: Protocol Stop: 07/21/17 15:46 Last Admin: 07/13/17 06:47 Dose: 200 mls/hr Insulin Human Regular (Humulin R Med) 0 units SC ACHS [facility] PRN Reason: Protocol Last Admin: 07/13/17 08:26 Dose: Not Given Metoprolol Tartrate (Lopressor) 25 mg PO DAILY [facility] Last Admin: 07/12/17 10:09 Dose: 25 mg Polyethylene Glycol (Miralax) 17 gm PO BID [facility] Last Admin: 07/12/17 17:55 Dose: 17 gm - Labs Labs: 07/13/17 06:10 07/13/17 06:10 PT 10.9 Seconds (9.9-11.8) 07/11/17 13:50 INR 1.01 (0.93-1.08) 07/11/17 13:50 APTT 32.4 Seconds (23.7-30.8) H 07/11/17 13:50 - Constitutional Appears: Non-toxic, No Acute Distress - Head Exam Head Exam: NORMAL INSPECTION - Neck Exam Neck Exam: absent: Meningismus - Respiratory Exam Respiratory Exam: Decreased Breath Sounds - Cardiovascular Exam Cardiovascular Exam: +S1, +S2 - GI/Abdominal Exam GI & Abdominal Exam: Soft. absent: Tenderness Assessment and Plan - Assessment and Plan (Free Text) Plan: Assessment Systemic Inflammatory Response Syndrome, R/O UTI R/O diverticulitis R/O acute bronchitis HTN DM COPD gastritis cataracts hearing impairment history of CVA anxiety depression Plan Continue Zosyn and Doxycycline day 2; blood and urine cx are negative; reviewed CT A/P which shows non-specific perinephric stranding of the left kidney with fullness of the left renal collecting system - suggest Urology evaluation will continue to trend fever curve; PCT is only 0.14 will monitor clinically
[2017-07-14 00:55] VITALS: RESP 20
[2017-07-14] MEDS: Piperacillin/Tazobact 3.375 gm 100 ML IVPB SCH ×2 (00:55→06:29)
[2017-07-14] MEDS: Budesonide 0.25 mg/2 ml Inhal Susp UD IH SCH (08:15)
[2017-07-14] MEDS: Insulin Reg-MEDIUM-Coverage SC SCH ×2 (08:22→11:42)
[2017-07-14] MEDS: POLYETHYLENE GLYCOL 3350 17 GM/Dose PACKET PO SCH (10:06)
[2017-07-14 10:11] VITALS: BP 141/73; PULSE 86
[2017-07-14 10:22] VITALS: TEMP 98.3; O2SAT 97
--- NOTE | 2017-07-15 16:27 | DS ---
SUBJECTIVE: This is a 72-year-ol female who is coming to the hospital. She had a fever. She was having left flank pain. The patient state that she is feeling better. She had urine cultures and blood cultures that were negative. She had a CT of the abdomen and pelvis, which shows nonspecific perinephric stranding. The patient was started on IV antibiotic and improved her symptoms. Her fever has improved. Her procalcitonin level was low at 0.14. She had no symptoms of abdominal pain. Today, she wants to be discharged home to follow up as an outpatient. The patient has no complaints of any headache or dizziness. No nausea. No vomiting. PHYSICAL EXAMINATION: VITAL SIGNS: Temperature 98.3, pulse of 86, blood pressure 141/73, respirations 20, O2 saturation 97%. GENERAL: The patient is lying in bed, flat, comfortable. HEENT: No oral lesion. Anicteric sclerae. Moist mucosa. NECK: No JVD, adenopathy, or thyromegaly. CARDIOVASCULAR: S1 and S2, regular. No murmurs, rubs, or gallops. LUNGS: Clear to auscultation bilaterally. No wheeze, rales, or rhonchi. ABDOMEN: Bowel sounds are positive, soft, nontender and nondistended. EXTREMITIES: No cyanosis, clubbing or edema. ASSESSMENT: 1. Fever, resolved. 2. Sepsis, improved. 3. Anemia, chronic. 4. Gastritis. 5. Chronic obstructive pulmonary disease. 6. Diabetes type 2. 7. Hypertension. 8. Hyponatremia, improved. PLAN: The patient is currently comfortable. She is going to be discharged home on Augmentin. I did speak to ____ about the patient. She is going to follow with Dr. Sterling as an outpatient. She is advised to return to the hospital if she has worsening of her symptoms or have return of her fever. Condition is stable. Activities increase as tolerated. Juan Carlos Velarde MD
== END 2017-07-14 12:24 | disposition home or self-care (01) | DRG 871 ==
LOC: ED 14:46 → ERH 18:45 → 3RNO 20:52
PROVIDERS: ADMIT Internal Medicine Nephrology; ATTEND Internal Medicine Nephrology
DX: A41.9 Sepsis, unspecified organism (principal); J18.9 Pneumonia, unspecified organism; K92.2 Gastrointestinal hemorrhage, unspecified; E11.9 Type 2 diabetes mellitus without complications; J44.0 Chronic obstructive pulmonary disease with (acute) lower respiratory infection; E87.1 Hypo-osmolality and hyponatremia; D63.8 Anemia in other chronic diseases classified elsewhere; E86.1 Hypovolemia; N12 Tubulo-interstitial nephritis, not specified as acute or chronic; K81.9 Cholecystitis, unspecified; D50.9 Iron deficiency anemia, unspecified; I10 Essential (primary) hypertension; E78.5 Hyperlipidemia, unspecified; E78.00 Pure hypercholesterolemia, unspecified; F32.89 Other specified depressive episodes; F41.9 Anxiety disorder, unspecified; H26.9 Unspecified cataract; H91.90 Unspecified hearing loss, unspecified ear; J20.9 Acute bronchitis, unspecified; K21.9 Gastro-esophageal reflux disease without esophagitis; K59.00 Constipation, unspecified; Z79.899 Other long term (current) drug therapy; Z86.19 Personal history of other infectious and parasitic diseases; Z86.73 Personal history of transient ischemic attack (TIA), and cerebral infarction without residual deficits; Z87.440 Personal history of urinary (tract) infections; K29.60 Other gastritis without bleeding

== ENCOUNTER 2017-08-06 15:03 | Inpatient (IN) | payer MEDICARE, OTHER ==
[2017-08-06 15:04] VITALS: BMI 25.7
--- NOTE | 2017-08-06 16:57 | RAD ---
HISTORY: Chest pain COMPARISON: 07/11/2017. FINDINGS: LUNGS: The lungs are well inflated and clear. PLEURA: No significant pleural effusion identified, no pneumothorax apparent. CARDIOVASCULAR: Normal. OSSEOUS STRUCTURES: No significant abnormalities. VISUALIZED UPPER ABDOMEN: Normal. OTHER FINDINGS: None. IMPRESSION: No active pulmonary disease.
[2017-08-06 16:59] LABS: ALB/GLOB RATIO 1.6 (1.1-1.8); ALKALINE PHOSPHATASE 118 U/L (38-126); ALT/SGPT 35 U/L (7-56); AST/SGOT 36 U/L (14-36); BILIRUBIN,TOTAL 0.6 mg/dL (0.2-1.3); BLOOD UREA NITROGEN 18 mg/dL (7-21); CALCIUM 9.1 mg/dL (8.4-10.5); CARBON DIOXIDE 27 mmol/L (21-33); CHLORIDE 91 mmol/L (98-107); GFR AFRICAN-AMERICAN > 60; GLUCOSE,RANDOM 114 mg/dL (70-110); POTASSIUM 3.8 mmol/L (3.6-5.0); SODIUM 128 mmol/L (132-148); TOTAL PROTEIN 7.6 g/dL (5.8-8.3)
[2017-08-06 17:01] LABS: URINE BILIRUBIN NEGATIVE (NEGATIVE); URINE BLOOD NEGATIVE (NEGATIVE); URINE GLUCOSE (UA) NEGATIVE (NEGATIVE); URINE KETONE NEGATIVE (NEGATIVE); URINE LEUKOCYTE ESTERASE NEGATIVE Leu/uL (NEGATIVE); URINE PROTEIN NEGATIVE mg/dL (<30 mg/dL); URINE UROBILINOGEN 0.2 E.U./dL (<1 E.U./dL)
[2017-08-06 17:11] LABS: INR 1.04 (0.93-1.08); PARTIAL THROMBOPLASTIN TIME 33.8 Seconds (25.1-36.5)
[2017-08-06 17:20] LABS: TROPONIN I < 0.01 ng/mL
[2017-08-06 17:22] LABS: URINE APPEARANCE CLEAR (CLEAR); URINE COLOR YELLOW (YELLOW)
[2017-08-06] MEDS ORDERED: Sodium Chloride 0.9% 1,000 ML IV ONE (17:22)
[2017-08-06 17:37] LABS: HEMATOCRIT 29.6 % (36.0-48.0); MEAN CELL VOLUME 87.8 fl (80.0-105.0); WHITE BLOOD COUNT 6.8 10^3/ul (4.5-11.0)
--- NOTE | 2017-08-06 17:38 | ED PDOC ---
Arrival/HPI - General Chief Complaint: High Blood Pressure Time Seen by Provider: 08/06/17 15:06 Historian: Patient, Family - History of Present Illness Narrative History of Present Illness (Text): 08/07/17 01:13 72yo female with PMHx of hypertension, hypercholestrol, CVA present with 3days history of nonexertion chest pain and left neck pain. Notes that her pain is intermittent. No relieving/exacerbating factors. States she started taking antibiotic on Sunday for UTI. She dneis SOB, diaphoresis, orthopnea, cough, LE edema, calf pain, nausea, vomiting, fever, recent travel. She took ASA twice today. Past Medical History - Provider Review Nursing Documentation Reviewed: Yes - Infectious Disease Hx of Infectious Diseases: None - Tetanus Immunization Tetanus Immunization: Unknown - Reproductive Menopause: Yes - Cardiac Hx Cardiac Disorders: Yes Hx Hypertension: Yes - Pulmonary Hx Chronic Obstructive Pulmonary Disease (COPD): Yes - Neurological HX Cerebrovascular Accident: Yes - HEENT Hx HEENT Disorder: Yes Hx Cataracts: Yes - Renal Hx Renal Disorder: No - Endocrine/Metabolic Hx Diabetes Mellitus Type 2: Yes - Hematological/Oncological Hx Blood Disorders: No - Integumentary Hx Dermatological Disorder: No - Musculoskeletal/Rheumatological Hx Musculoskeletal Disorders: No Hx Falls: No - Gastrointestinal Hx Gastrointestinal Disorders: Yes Hx Gastroesophageal Reflux: Yes - Genitourinary/Gynecological Hx Genitourinary Disorders: Yes Hx Urinary Tract Infection: Yes - Psychiatric Hx Psychophysiologic Disorder: No Hx Substance Use: No - Past Surgical History Past Surgical History: No Previous - Surgical History Hx Cardiac Catheterization: No Hx Coronary Stent: No - Anesthesia Hx Anesthesia: No - Suicidal Assessment Feels Threatened In Home Enviroment: No Family/Social History - Physician Review Nursing Documentation Reviewed: Yes Family/Social History: Unknown Family HX Smoking Status: Never Smoked Hx Alcohol Use: No Hx Substance Use: No Hx Substance Use Treatment: No Allergies/Home Meds Allergies/Adverse Reactions: Allergies No Known Allergies Allergy (Verified 07/11/17 19:53) Home Medications: Home Meds Medication Instructions Recorded Confirmed Atorvastatin [Lipitor] 20 mg PO DAILY 11/05/14 08/06/17 amLODIPine [Norvasc] 10 mg PO DAILY 11/05/14 08/06/17 hydroCHLOROthiazide [Microzide] 12.5 mg PO DAILY 01/17/16 08/06/17 Glipizide [Glipizide ER] 5 mg PO DAILY 06/25/17 08/06/17 Fluticasone/Salmeterol 100/50 1 puff IH DAILY 07/11/17 08/06/17 [Advair Diskus 100/50] Losartan Potassium [Cozaar] 100 mg PO DAILY 07/11/17 08/06/17 Metoprolol Tartrate [Lopressor] 25 mg PO BID 07/11/17 08/06/17 Clonidine HCl [Catapres] 0.1 mg PO DAILY 08/06/17 08/06/17 Nitrofurantoin Macrocrystal 100 mg PO Q12 08/06/17 08/06/17 [Nitrofurantoin Macrocrystals] Review of Systems - Physician Review All systems were reviewed & negative as marked: Yes - Review of Systems Constitutional: Normal Eyes: Normal ENT: Normal Respiratory: Normal Cardiovascular: Chest Pain Gastrointestinal: Normal Genitourinary Female: Normal Musculoskeletal: Normal Skin: Normal Neurological: Normal Endocrine: Normal Hemo/Lymphatic: Normal Psychiatric: Normal Physical Exam Vital Signs Reviewed: Yes Vital Signs Temp Pulse Resp BP Pulse Ox 08/06/17 19:43 81 19 138/97 H 100 08/06/17 15:50 98.6 F 72 18 144/78 100 Temperature: Afebrile Blood Pressure: Normal Pulse: Regular Respiratory Rate: Normal Appearance: Positive for: Well-Appearing, Non-Toxic, Comfortable Pain Distress: None Mental Status: Positive for: Alert and Oriented X 3 - Systems Exam Head: Present: Atraumatic, Normocephalic Pupils: Present: PERRL Extroacular Muscles: Present: EOMI Conjunctiva: Present: Normal Mouth: Present: Moist Mucous Membranes Neck: Present: Normal Range of Motion, Paraspinal Tenderness (LEft paraspinous tenderness). No: Meningeal Signs, MIDLINE TENDERNESS Respiratory/Chest: Present: Clear to Auscultation, Good Air Exchange. No: Respiratory Distress, Accessory Muscle Use, Wheezes, Decreased Breath Sounds, Rales, Retracting, Rhonchi Cardiovascular: Present: Regular Rate and Rhythm, Normal S1, S2. No: Murmurs Abdomen: Present: Normal Bowel Sounds. No: Tenderness, Distention, Peritoneal Signs Back: Present: Normal Inspection Upper Extremity: Present: Normal Inspection. No: Cyanosis, Edema Lower Extremity: Present: Normal Inspection. No: Edema Neurological: Present: GCS=15, CN II-XII Intact, Speech Normal Skin: Present: Warm, Dry, Normal Color. No: Rashes Psychiatric: Present: Alert, Oriented x 3, Normal Insight, Normal Concentration Medical Decision Making ED Course and Treatment: 08/07/17 01:18 Pt presented for stated history. She was hemodynamically stable in ED. Hyponatremia was noted. first CE was negative. 1L of NS was given . ASA was held , hence pt took ASA at home. H.h was 9.6 which improved slightly from her last visit. EKG NSR at 70bpm CXR NAD Pt's d dimer was elevated and CT angio was ordered to r/o PE 08/07/17 01:20 CT angio was negative Case was DW Dr. apple and pt was admitted. Result and plan was DW both pt and the daughter who agreed - Lab Interpretations Lab Results: 08/06/17 16:30 08/06/17 16:30 Lab Results 08/06/17 16:30: Sodium 128 L, Potassium 3.8, Chloride 91 L, Carbon Dioxide 27, Anion Gap 14, BUN 18, Creatinine 0.9, Est GFR ( Amer) > 60, Est GFR (Non- Af Amer) > 60, Random Glucose 114 H, Calcium 9.1, Magnesium 2.0, Total Bilirubin 0.6, AST 36 D, ALT 35, Alkaline Phosphatase 118, Lactate Dehydrogenase 364, Total Creatine Kinase 51, Troponin I < 0.01, NT-Pro-B Natriuret Pep 197, Total Protein 7.6, Albumin 4.7, Globulin 2.9, Albumin/ Globulin Ratio 1.6 08/06/17 16:30: Urine Color Yellow, Urine Appearance Clear, Urine pH 6.0, Ur Specific Mcmillan 1.010, Urine Protein Negative, Urine Glucose (UA) Negative, Urine Ketones Negative, Urine Blood Negative, Urine Nitrate Negative, Urine Bilirubin Negative, Urine Urobilinogen 0.2, Ur Leukocyte Esterase Negative 08/06/17 16:30: PT 11.3, INR 1.04, APTT 33.8, D-Dimer, Quantitative 273 H 08/06/17 16:30: WBC 6.8 D, RBC 3.37 L, Hgb 9.6 L, Hct 29.6 L, MCV 87.8, MCH 28.5, MCHC 32.4, RDW 16.1 H, Plt Count 231, MPV 9.9, Gran % 63.4, Lymph % (Auto ) 24.8, Edwards % (Auto) 9.0 H, Eos % (Auto) 2.5, Baso % (Auto) 0.3, Gran # 4.29, Lymph # 1.7, Edwards # 0.6, Eos # 0.2, Baso # 0.02 - RAD Interpretation Radiology Orders: 08/06/17 16:20 CHEST PORTABLE [RAD] Stat - Medication Orders Current Medication Orders: Acetaminophen (Tylenol 325mg Tab) 650 mg PO Q4H PRN PRN Reason: Pain, Mild (1-3) Amlodipine Besylate (Norvasc) 10 mg PO DAILY [facility] Arformoterol Tartrate (Brovana) 15 mcg IH 0800 [facility] Aspirin (Aspirin Chewable) 81 mg PO DAILY [facility] Atorvastatin Calcium (Lipitor) 20 mg PO DIN [facility] Budesonide (Pulmicort Respules) 0.25 mg IH 0800 [facility] Clonidine HCl (Catapres) 0.1 mg PO DAILY [facility] Glipizide (Glucotrol) 5 mg PO ACB [facility] Sodium Chloride (Sodium Chloride 0.9%) 1,000 mls @ 75 mls/hr IV .[id number] [facility] Last Admin: 08/07/17 00:32 Dose: Insulin Human Regular (Humulin R Low) 0 units SC ACHS [facility] PRN Reason: Protocol Last Admin: 08/06/17 22:25 Dose: Not Given Non-Admin Reason: Blood Sugar Parameter MAR Blood Glucose Document 08/06/17 22:25 [facility] [place] (Rec: 08/06/17 22:25 [facility] [place] [id number]) Blood Glucose Finger Stick Blood Glucose (70-120) 137 Losartan Potassium (Cozaar) 100 mg PO DAILY [facility] Metoprolol Tartrate (Lopressor) 25 mg PO BID [facility] Tramadol HCl (Ultram) 50 mg PO Q6H PRN PRN Reason: Pain, moderate (4-7) Discontinued Medications Aspirin (Ecotrin) 81 mg PO STAT [facility] Stop: 08/06/17 16:18 Last Admin: 08/06/17 16:47 Dose: Sodium Chloride (Sodium Chloride 0.9%) 1,000 mls @ 250 mls/hr IV .Q4H ONE Stop: 08/06/17 21:21 Last Admin: 08/06/17 19:25 Dose: 250 mls/hr eMAR Start Stop Document 08/06/17 19:25 EQ (Rec: 08/06/17 19:25 EQ [facility] [id number]) Intravenous Solution Start Date 08/06/17 Start Time 19:25 Pneumococcal Polyvalent Vaccine (Pneumovax 23 Vaccine) 0.5 ml IM .ONCE ONE Stop: 08/06/17 22:38 Disposition/Present on Arrival - Present on Arrival Any Indicators Present on Arrival: No History of DVT/PE: No History of Uncontrolled Diabetes: No Urinary Catheter: No History of Decub. Ulcer: No History Surgical Site Infection Following: None - Disposition Have Diagnosis and Disposition been Completed?: Yes Diagnosis: Chest pain, Hyponatremia, Anemia Disposition: HOSPITALIZED Disposition Time: 17:25 Patient Problems: Current Active Problems Problem Status Onset Anemia Acute Chest pain Acute Hyponatremia Acute Condition: FAIR
[2017-08-06 17:40] LABS: GRAN % 63.4 % (50.0-68.0); MEAN CORPUSCULAR HEMOGLOBIN 28.5 pg (25.0-35.0); MEAN CORPUSCULAR HGB CONC 32.4 g/dl (31.0-37.0); MEAN PLATELET VOLUME 9.9 fl (7.0-11.0); RED CELL DISTRIBUTION WIDTH 16.1 % (11.5-14.5)
[2017-08-06 17:45] LABS: BASO # 0.02 K/mm3 (0.0-2.0); BASO % 0.3 % (0.0-3.0); EOS # 0.2 (0.0-0.7); EOS % 2.5 % (1.5-5.0); GRAN # 4.29 (1.4-6.5); LYMPH # 1.7 (1.2-3.4); LYMPH % 24.8 % (22.0-35.0); MONO # 0.6 (0.1-0.6)
[2017-08-06] MEDS ORDERED: Iohexol 350 MG/100 ML VIAL ONE ×2 (19:30→20:04)
--- NOTE | 2017-08-06 21:50 | CT ---
EXAM: CT Angiography Chest With Intravenous Contrast CLINICAL HISTORY: 72 years old, female; Pain; Chest pain; On breathing TECHNIQUE: Axial computed tomographic angiography images of the chest with intravenous contrast using pulmonary embolism protocol. All CT scans at this facility use one or more dose reduction techniques, viz.: automated exposure control; ma/kV adjustment per patient size (including targeted exams where dose is matched to indication; i.e. head); or iterative reconstruction technique. MIP reconstructed images were created and reviewed. Coronal and sagittal reformatted images were created and reviewed. CONTRAST: 100 mL of OMNI administered intravenously. COMPARISON: CT - CHEST W/O CONTRAST 2017-01-17 10:27 FINDINGS: Pulmonary arteries: No pulmonary embolism. Aorta: No thoracic aortic aneurysm. Lungs: No mass. No consolidation. Pleural spaces: No significant effusion. No pneumothorax. Heart: No cardiomegaly. No significant pericardial effusion. No evidence of right heart dysfunction. Bones: No acute fracture. Lymph nodes: No pathologically enlarged lymph nodes. IMPRESSION: No pulmonary embolism. The lungs are clear.
[2017-08-06] MEDS: Insulin Reg-LOW-Coverage SC SCH (22:25)
[2017-08-06] MEDS ORDERED: Influenza Vaccine 60 mcg/0.5 mL SYR (4YR UP) IM ONE (22:37)
[2017-08-06] MEDS ORDERED: Pneumococcal 23-Valent Vaccine IM ONE (22:37)
[2017-08-07 00:08] VITALS: RESP 20
[2017-08-07] MEDS ORDERED: Sodium Chloride 0.9% 1,000 ML IV SCH (00:30)
[2017-08-07 06:20] VITALS: TEMP 98.7; O2SAT 97
[2017-08-07 06:35] LABS: HEMATOCRIT 28.9 % (36.0-48.0); MEAN CELL VOLUME 86.8 fl (80.0-105.0); MEAN CORPUSCULAR HEMOGLOBIN 28.8 pg (25.0-35.0); MEAN CORPUSCULAR HGB CONC 33.2 g/dl (31.0-37.0); MEAN PLATELET VOLUME 9.5 fl (7.0-11.0); RED CELL DISTRIBUTION WIDTH 16.3 % (11.5-14.5)
[2017-08-07 06:48] LABS: BLOOD UREA NITROGEN 16 mg/dL (7-21); CALCIUM 9.3 mg/dL (8.4-10.5); CARBON DIOXIDE 29 mmol/L (21-33); CHLORIDE 102 mmol/L (98-107); GFR AFRICAN-AMERICAN > 60; GLUCOSE,RANDOM 111 mg/dL (70-110); POTASSIUM 4.4 mmol/L (3.6-5.0); SODIUM 139 mmol/L (132-148)
[2017-08-07 06:59] LABS: TROPONIN I < 0.01 ng/mL
[2017-08-07] MEDS ORDERED: Budesonide 0.25 mg/2 ml Inhal Susp UD IH SCH (08:00)
[2017-08-07] MEDS ORDERED: Arformoterol 15 mcg/2 ml Inh Sol IH SCH (08:00)
[2017-08-07] MEDS: Insulin Reg-LOW-Coverage SC SCH ×2 (08:06→11:58)
[2017-08-07 09:58] VITALS: BP 137/70; PULSE 96
[2017-08-07] MEDS ORDERED: Fluticasone-Salmeterol 100-50mcg Diskus IH SCH (10:00)
--- NOTE | 2017-08-07 14:13 | CON ---
DATE: 08/07/2017 CONSULTATION INDICATIONS: Chest pain. HISTORY OF PRESENT ILLNESS: This is a 72-year-old woman, known to me from prior admissions, admitted early this morning through the emergency room when she complained of chest discomfort radiating into the left neck on and off. It was not associated with shortness of breath or other symptoms. There was no orthopnea, PND, syncope, presyncope, lightheadedness, dizziness, vertigo, palpitations, edema, claudication. She is [place] speaking. Information is from the chart and from Dr. Wolfe. PAST MEDICAL HISTORY: Notable for admission to [facility] with chest pain in June of 2017. At that time, she was ruled out and was to arrange an outpatient stress test through her [place] chief nursing executive. It is not clear at this time as to whether or not she had a stress test. There is a history of hypertension, diabetes, urinary tract infection, remote stroke, COPD, hyperlipidemia, anxiety, depression, gastritis, anemia. An echocardiogram during the last admission in June demonstrated normal left ventricular function with moderate AI and TR and mild mitral regurgitation. MEDICATIONS: At the time of admission include Lipitor, Norvasc, aspirin, Advair, clonidine, losartan, glipizide, metoprolol, hydrochlorothiazide, nitrofurantoin. ALLERGIES: THERE ARE NO MEDICATION ALLERGIES. FAMILY HISTORY: Noncontributory. SOCIAL HISTORY: She lives at home. She is ambulatory. She does not smoke. She does not drink alcohol significantly. REVIEW OF SYSTEMS: A 10-point review of systems is otherwise unremarkable except as noted above. PHYSICAL EXAMINATION GENERAL: She is a well-developed woman, lying in bed on telemetry, no acute distress. VITAL SIGNS: Notable for sinus rhythm 68 beats per minute, afebrile, blood pressure 127/59, respirations 18 to 20, O2 sat 97% to 100% on room air. HEENT: Reveals no neck vein distention, thyromegaly, or carotid bruits. Mucous membranes are moist. Conjunctivae are pink. NECK: Supple. LUNGS: Lung xiao clear throughout. HEART: Reveals normal first and second heart sounds. There is a soft diastolic murmur along the left sternal border. There is a soft systolic murmur at the left lower sternum and at the apex. PMI is not displaced. ABDOMEN: Soft, bowel sounds present. No mass, organomegaly, tenderness, rebound, guarding, CVA tenderness, or palpable abdominal aortic aneurysm. EXTREMITIES: Revealed no cyanosis, clubbing, or edema. NEUROLOGIC: She is awake and alert. SKIN: Warm and dry. PSYCHIATRIC: Normal as to mood and affect. LABORATORY AND IMAGING: A chest x-ray is a portable study. It shows no active pulmonary disease. CT of the chest showed no pulmonary embolism, the lungs are clear. EKG shows sinus rhythm, no acute changes. White count is normal, platelet count is normal, hemoglobin 9.6, hematocrit 28.9. PT, INR, PTT are unremarkable. D-dimer elevated at 273. Electrolytes initially abnormal with a sodium of 128, repeat 139; BUN and creatinine are unremarkable; blood sugars 114 to 137 range. Magnesium normal. LFTs normal. CK normal. Two troponins normal. BNP 197. Urinalysis is unremarkable. ASSESSMENT: The patient is a 72-year-old woman with recurring chest pain, which is atypical and nonexertional. Two troponins are negative. Her first EKG was benign. She is not having symptoms at the moment. At this time, she will be on telemetry. We will continue her usual medications including aspirin, clonidine, Cozaar, atorvastatin, metoprolol, amlodipine. I will review her old records and echocardiogram. She should be considered for nuclear stress testing unless this has been done fairly recently by her [place] chief nursing executive. It could be done as an inpatient tomorrow if it has not been done recently. She can be out of bed. I will repeat her EKG this morning. Given the admission hyponatremia, we should consider discontinuing the hydrochlorothiazide. I will follow along with you. I will make additional recommendations based on her clinical course. Silvio Durant MD
--- NOTE | 2017-08-07 16:37 | CARD ---
APPROVED REPORT EKG Measurement Heart [id number] <Conclusion> Normal sinus rhythm Normal ECG
--- NOTE | 2017-08-07 17:05 | CARD ---
APPROVED REPORT EKG Measurement Heart [id number] <Conclusion> Poor data quality, interpretation may be adversely affected Normal sinus rhythm Septal infarct, age undetermined Abnormal ECG
--- NOTE | 2017-08-08 04:10 | HP ---
CHIEF COMPLAINT AND HISTORY OF PRESENT ILLNESS: This is a 72-year-old female who is coming to the hospital with past medical history of hypertension, dyslipidemia, CVA. She states that she is having chest pain for the last 3 days, that also goes to her neck. She was to follow up with her milk bottler for stress test, but has not been able to do so. The patient says that chest pain is improved. She has no complaints of shortness of breath. She had been taking antibiotics for UTI. She had no fevers. No chills. No dysuria. No frequency. No nocturia. She also has been on aspirin. REVIEW OF SYSTEMS: All the review of systems are within normal limits except as mentioned. ALLERGIES: NO KNOWN DRUG ALLERGIES. HOME MEDICATIONS: Have been reviewed on the [facility]. PAST MEDICAL HISTORY: Diabetes, hypertension, COPD and dyslipidemia. SOCIAL HISTORY: She does not smoke, drink or use drug. PHYSICAL EXAMINATION VITAL SIGNS: Temperature is 98.7, pulse of 68, blood pressure 127/59, respirations 20 and O2 saturation 97%. Height is 5 feet 4, weight is 141 pounds. BMI of 24. GENERAL: The patient lying in bed, uncomfortable, and in no acute distress. HEENT: Atraumatic and normocephalic. Anicteric sclerae. Moist mucosa. [place] conjunctivae. No oral lesions. NECK: No JVD, anterior and posterior adenopathy, thyromegaly, or bruits. CARDIOVASCULAR: S1 and S2 regular. No murmur, rubs, or gallop. LUNGS: Clear to auscultation bilaterally. No wheezes, rales, or rhonchi. ABDOMEN: Bowel sounds are positive. Soft, nontender and nondistended. No hepatosplenomegaly. No rebound and no guarding. EXTREMITIES: No cyanosis, clubbing, or edema. NEUROLOGIC: No facial asymmetry. Tongue is midline. No uvula deviation. Power is 5/5 upper extremity and lower extremity. Sensation intact in upper extremity and lower extremity. PSYCHIATRIC: She is awake, alert and oriented x3. No anxiety or depression. She has normal affect. GENITOURINARY: No CVA tenderness. VASCULAR: 2+ pulses in the carotid pulses and pedal pulses. SKIN: No erythema or nodules. SPINE: Shows normal curvature. EXTREMITIES: No Cyanosis and clubbing, no edema. LABORATORY DATA: White count 6.8, hemoglobin 9.6 and platelet count is 231. INR is 1.04. Chemistry shows troponin x2 has been negative, creatinine is 0.9. Urine shows ketones are negative, blood is negative, nitrites are negative. CT of the chest done shows no pulmonary embolism. EKG done shows heart rate of 72, sinus rhythm with QTc of 429. Chest x-ray shows no active disease. ASSESSMENT: 1. Chest pain, now resolved. 2. Hyponatremia, resolved. 3. Diabetes type 2. 4. Hypertension. PLAN: The patient is currently comfortable. She is admitted to the hospital. She was placed on her aspirin. She was given IV fluids. The patient was seen by Dr. Durant from Cardiology, I did speak to him. The patient is scheduled to see her milk bottler and will have a stress test done. The patient is on Lipitor for dyslipidemia. She is on glipizide. She is going to continue with losartan for her hypertension. She is on amlodipine for her hypertension as well. CONDITION: Stable. ACTIVITIES: Increase as tolerated. Juan Carlos Velarde MD
== END 2017-08-07 13:56 | disposition home or self-care (01) | DRG 313 ==
LOC: ED 15:03 → ERH 17:30 → 2RNO 20:36
PROVIDERS: ADMIT Internal Medicine Nephrology; ATTEND Internal Medicine Nephrology
DX: R07.89 Other chest pain (principal); N39.0 Urinary tract infection, site not specified; E87.1 Hypo-osmolality and hyponatremia; J44.9 Chronic obstructive pulmonary disease, unspecified; E11.9 Type 2 diabetes mellitus without complications; D64.9 Anemia, unspecified; I10 Essential (primary) hypertension; I08.3 Combined rheumatic disorders of mitral, aortic and tricuspid valves; E78.5 Hyperlipidemia, unspecified; K21.9 Gastro-esophageal reflux disease without esophagitis; Z79.899 Other long term (current) drug therapy; Z86.73 Personal history of transient ischemic attack (TIA), and cerebral infarction without residual deficits; Z87.440 Personal history of urinary (tract) infections; H26.9 Unspecified cataract; R40.2412 Glasgow coma scale score 13-15, at arrival to emergency department

== ENCOUNTER 2018-11-13 11:01 | Outpatient (CLI) | payer MEDICARE, OTHER | END 2018-11-13 11:02 | disposition home or self-care (01) | LOC: RAD 11:01 ==

== ENCOUNTER 2019-01-07 08:16 | Outpatient (CLI) | payer MEDICARE, OTHER | END 2019-01-07 08:17 | disposition home or self-care (01) | LOC: RAD 08:16 ==